=== PATIENT | male | born 1955 | race Caucasian/White ===

== ENCOUNTER 2020-11-07 10:01 | Outpatient (REF) | payer BC, SELFPAY ==
[2020-11-07 11:51] LABS: Alanine Aminotransferase 31 U/L (0-40); Anion Gap 14 (12-20); Aspartate Amino Transferase 28 U/L (5-37); Blood Urea Nitrogen 15 mg/dL (9-16); Calcium 9.2 mg/dL (8.4-10.2); Carbon Dioxide 28 mmol/L (22-29); Chloride 104 mmol/L (96-108); Cholesterol 213 mg/dL; Estimated Glomerular Filt Rate > 60; Glucose Fasting 101 mg/dL (60-99); HDL Cholesterol 77 mg/dL; LDL Cholesterol Calculated 125 mg/dl; Sodium 141 mmol/L (135-145); Triglycerides 58 mg/dL
[2020-11-07 12:01] LABS: PSA,Total (Free>4and<10) 0.93 ng/mL (0.00-4.00); Vitamin D 25-OH Total 62.9 ng/mL (>30)
== END 2020-11-07 10:02 | disposition home or self-care (01) ==
LOC: HO.HMGCLDS 10:01
PROVIDERS: PCP Internal Medicine; Visit Provider Internal Medicine
DX: Z00.01 Encounter for general adult medical examination with abnormal findings (principal); Z12.5 Encounter for screening for malignant neoplasm of prostate
CPT/HCPCS: 36415; 80048; 80061; 82306; 84153; 84450; 84460

== ENCOUNTER 2021-08-11 19:14 | Outpatient (REF) | payer BC, SELFPAY | END 2021-08-11 19:15 | disposition home or self-care (01) | LOC: HO.LNP 19:14 | PROVIDERS: Visit Provider Hospitalist | DX: Z20.822 Contact with and (suspected) exposure to COVID-19 (principal) | CPT/HCPCS: U0003; U0005 ==

== ENCOUNTER 2021-12-17 17:03 | Outpatient (REF) | payer BC, SELFPAY ==
--- NOTE | ~2021-12-17 | US_ITS ---
EXAMINATION: US SCROTUM CLINICAL INFORMATION: Scrotal pain. COMPARISON: Scrotal ultrasound dated 05/23/2019. TECHNIQUE: A sonogram of the scrotum was performed assessing grace-scale appearance and color Doppler flow. Spectral Doppler analysis of the arterial and venous flow were performed in the testes bilaterally. FINDINGS: RIGHT: Right testicle measures 3.3 x 2.0 x 2.8 cm, volume 9.3 mL. No focal testicular parenchymal lesions are visualized. Spectral Doppler analysis of the arterial and venous flow is normal in the right testis. Right epididymal head and tail with diffuse enlargement and heterogeneity with hypervascularity. A small anechoic cyst measures 0.4 cm. Trace right hydrocele. Prominent right venous plexus with increased vascularity. Right epididymal Doppler flow is normal. LEFT: Left testicle measures 3.8 x 2.2 x 2.2 cm, volume 9.4 mL. No focal testicular parenchymal lesions are visualized. Spectral Doppler analysis of the arterial and venous flow is normal in the left testis. Left epididymal diffuse mild enlargement and heterogeneity without hypervascularity. Anechoic cyst measuring 0.3 cm. Small left hydrocele. US/US scrotum doppler IMPRESSION: 1. No significant intratesticular abnormality. 2. Enlarged epididymides with heterogeneity bilaterally. The hypervascularity is seen on the right suggestive of acute epididymitis. 3. Trace right and small left hydroceles. 4. Right varicocele.
--- NOTE | ~2021-12-17 | US_ITS ---
EXAMINATION: US SCROTUM CLINICAL INFORMATION: Scrotal pain. COMPARISON: Scrotal ultrasound dated 05/23/2019. TECHNIQUE: A sonogram of the scrotum was performed assessing grace-scale appearance and color Doppler flow. Spectral Doppler analysis of the arterial and venous flow were performed in the testes bilaterally. FINDINGS: RIGHT: Right testicle measures 3.3 x 2.0 x 2.8 cm, volume 9.3 mL. No focal testicular parenchymal lesions are visualized. Spectral Doppler analysis of the arterial and venous flow is normal in the right testis. Right epididymal head and tail with diffuse enlargement and heterogeneity with hypervascularity. A small anechoic cyst measures 0.4 cm. Trace right hydrocele. Prominent right venous plexus with increased vascularity. Right epididymal Doppler flow is normal. LEFT: Left testicle measures 3.8 x 2.2 x 2.2 cm, volume 9.4 mL. No focal testicular parenchymal lesions are visualized. Spectral Doppler analysis of the arterial and venous flow is normal in the left testis. Left epididymal diffuse mild enlargement and heterogeneity without hypervascularity. Anechoic cyst measuring 0.3 cm. Small left hydrocele. US/US scrotum IMPRESSION: 1. No significant intratesticular abnormality. 2. Enlarged epididymides with heterogeneity bilaterally. The hypervascularity is seen on the right suggestive of acute epididymitis. 3. Trace right and small left hydroceles. 4. Right varicocele.
== END 2021-12-17 17:04 | disposition home or self-care (01) ==
LOC: HO.US 17:03
PROVIDERS: Visit Provider Internal Medicine
DX: N50.82 Scrotal pain (principal); N50.89 Other specified disorders of the male genital organs
CPT/HCPCS: 76870; 93975

== ENCOUNTER 2022-08-03 10:12 | Outpatient (REF) | payer BC, SELFPAY ==
[2022-08-03 11:28] LABS: MANUAL DIFF FLAG NO
[2022-08-03 11:34] LABS: Basophils Percent Auto 0.9 % (0-2); Eosinophils Absolute Auto 0.1 X10*3/uL (0.0-0.4); Hematocrit 44.5 % (42.0-52.0); Hemoglobin 14.8 g/dl (14.0-18.0); Imm Gran Abs Auto 0.01 X10*3/uL (0.00-0.03); Imm Gran Pct Auto 0.2 % (0.0-0.4); Lymphocytes Absolute Auto 1.6 X10*3/uL (1.2-4.9); Lymphocytes Percent Auto 34.9 % (20-40); Mean Corpuscular HGB Conc 33.3 g/dl (31.0-36.0); Mean Corpuscular Hemoglobin 30.6 pg (27.0-33.0); Mean Corpuscular Volume 91.9 fL (80.0-98.0); Mean Platelet Volume 11.8 fL (9.4-12.4); Monocytes Absolute Auto 0.4 X10*3/uL (0.1-1.2); Monocytes Percent Auto 8.3 % (2-11); Neutrophils Absolute Auto 2.5 x10*3/uL (2.0-8.3); Neutrophils Percent Auto 53.7 % (45-73); Platelet Count 211 X10*3/uL (160-400); Red Blood Count 4.84 X10*6/uL (4.60-5.80); Red Cell Distribution Width 12.5 % (11.0-16.0); White Blood Count 4.6 X10*3/uL (4.8-10.8)
== END 2022-08-03 10:13 | disposition home or self-care (01) ==
LOC: HO.HMGCLDS 10:12
PROVIDERS: PCP Internal Medicine; Visit Provider Internal Medicine
DX: R06.02 Shortness of breath (principal); R12 Heartburn
CPT/HCPCS: 36415; 84443; 85025

== ENCOUNTER 2022-08-19 14:40 | Outpatient (REF) | payer BC, SELFPAY ==
--- NOTE | 2022-08-19 17:42 | PFT_ITS ---
INDICATION: Asthma. SPIROMETRY: FEV1 to FVC of 79% with an FEV1 of 4.43 L, which is 139% predicted and an FVC of 5.58 L, which is 130% predicted. No significant response to bronchodilators noted. Maximum voluntary ventilation not completed. LUNG VOLUMES: Total lung capacity 120% predicted with residual volume 102% predicted. DIFFUSION CAPACITY: DLCO 105% predicted. Flow volume loop appears to be perfectly normal. INTERPRETATION: No obstructive nor restrictive ventilatory defects identified. No significant response to bronchodilators noted. Normal lung volumes and normal diffusion capacity. The flow volume loop appears to be consistent with normal lung mechanics. Normal pulmonary function studies. If asthma is in the differential, then a methacholine challenge may be helpful for assessing for hyper-reactive airways. Otherwise, clinical correlation warranted. MD LUIS Meza/MODL / [id number]
== END 2022-08-19 14:41 | disposition home or self-care (01) ==
LOC: HO.RESP 14:40
PROVIDERS: PCP Internal Medicine; Visit Provider Internal Medicine
DX: R06.02 Shortness of breath (principal)
CPT/HCPCS: 94060; 94727; 94729

== ENCOUNTER 2022-09-03 09:02 | Outpatient (REF) | payer BC, SELFPAY ==
--- NOTE | ~2022-09-03 | FL_ITS ---
EXAMINATION: XR GI SERIES CLINICAL INFORMATION: Heartburn, reflux, nausea and epigastric pain COMPARISON: None TECHNIQUE: Routine upper GI air-contrast study was performed in upright and lying position FINDINGS: Following oral administration of thick barium and effervescent granules there is normal propagation bolus from the oral cavity through the pharynx, esophagus into stomach without any evidence of obstruction, narrowing or stricture. On placing patient supine and prone lying the course, caliber and peristalsis of the stomach and the duodenum bulb is normal. There are small gastric erosions seen in the body of the stomach and flocculation in the antrum likely secondary to gastric hyperacidity. The duodenal bulb and the sweep is normal. The mucosal pattern of the duodenum is normal. FLUOROSCOPY TIME: 2.4 minutes DOSE AREA PRODUCT: 45.174 uGy-m2 (microgray-meter squared) FL/FL upper GI series IMPRESSION: Small gastric erosions but no duodenal ulceration. Suspect hyperacidity.
== END 2022-09-03 09:03 | disposition home or self-care (01) ==
LOC: HO.XRAY 09:02
PROVIDERS: PCP Internal Medicine; Visit Provider Internal Medicine
DX: R10.13 Epigastric pain (principal)
CPT/HCPCS: 74240

== ENCOUNTER 2022-10-01 07:01 | Outpatient (REF) | payer BC, MEDICARE, SELFPAY ==
[2022-10-01 12:25] LABS: Cholesterol 213 mg/dL; Glucose Fasting 109 mg/dL (60-99); HDL Cholesterol 82 mg/dL; LDL Cholesterol Calculated 123 mg/dl; Triglycerides 43 mg/dL
[2022-10-01 12:50] LABS: PSA,Total (Free>4and<10) 0.95 ng/mL (0.00-4.00); Vitamin D 25-OH Total 32.3 ng/mL (>30)
== END 2022-10-01 07:02 | disposition home or self-care (01) ==
LOC: HO.HMGCLDS 07:01
PROVIDERS: PCP Internal Medicine; Visit Provider Internal Medicine
DX: Z00.01 Encounter for general adult medical examination with abnormal findings (principal); Z12.5 Encounter for screening for malignant neoplasm of prostate; R73.01 Impaired fasting glucose; E78.00 Pure hypercholesterolemia, unspecified; E66.3 Overweight; Z86.39 Personal history of other endocrine, nutritional and metabolic disease
CPT/HCPCS: 36415; 80061; 82306; 82947; 84153

== ENCOUNTER 2023-02-21 10:05 | Outpatient (AMB) | payer BC, SELFPAY ==
--- NOTE | 2023-02-21 10:36 | MHC.OFFWIV ---
Intake Vital Signs 02/21/23 10:45 Height 5 ft 8 in BP 128/64 Blood Pressure Location Rt brachial Position Sitting Pulse 65 Pulse Source Pulse Oximeter Temp 97.5 F Temp Source Temporal Artery Scan Pulse Oximetry (%) 98 Oxygen Delivery Method Room Air Intake Visit Reasons: EP, Dizziness Patient Tobacco Use Status: Never used Tobacco Allergies No Known Allergies [No Known Allergies*] Allergy (Verified 02/21/23 10:44) Do you need a note to return to daycare/school/sports/work: No HPI EP, Dizziness HPI Details Patient presents with 4-5 days of generalized weakness, fatigue and dizziness and ?just feeling off kilter ?. He notes doing a significant amount of yd work and [place] preparation in the extreme heat. He did drink lot water and Gatorade to try to combat dehydration. But he feels like he cannot recover from it. He denies chest pain or shortness of breath beyond baseline. He denies injury or use of blood thinners or blow to head. He notes normal appetite no indigestion, normal urination without symptoms. No congestion ear pain or nasal symptoms. Denies fever headache or rashes. No joint pain beyond his normal arthritic pain. 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 Brother No problems noted. Sister No problems noted. Daughter No problems noted. Social History Housing: House Alcohol intake: current Patient Tobacco Use Status: Never used Tobacco e-Cigarette/Vaping Use: Never Used service: No Current occupational status: employed Cognitive needs: No Hearing needs: No Vision needs: No Review of Systems Const Reports as per HPI and Reports no additional complaints Eyes Reports no additional complaints ENT Reports no additional complaints and Reports as per HPI Card Reports as per HPI and Reports no additional complaints Resp Reports as per HPI and Reports no additional complaints GI Reports as per HPI and Reports no additional complaints Reports no additional complaints and Reports as per HPI Musc Reports no additional complaints and Reports as per HPI Skin/Breast Denies lesions Neuro Reports no additional complaints, Reports as per HPI and Denies Abnormal speech present Physical Exam Vital Signs: Last Vital Signs Temp 97.5 F 02/21/23 10:45 Pulse 65 02/21/23 10:45 BP 128/64 02/21/23 10:45 Pulse Ox 98 02/21/23 10:45 Oxygen Delivery Method Room Air 02/21/23 10:45 Const General: cooperative, comfortable, no acute distress, alert and awake Nutritional Appearance: average body habitus Orientation/consciousness: patient oriented x3 Limitations: no limitations HEENT Head: Yes normal to inspection Ears: external ears normal and TM's normal bilaterally General nose exam: Normal external nose present and Normal nares present Face and sinus: Yes normal facial exam and Yes sinuses nontender Mouth: Normal oral and palatal mucosa present Throat: Yes posterior oropharynx normal Eyes General: appearance normal, both eyes and all related structures Visual Farfan: normal visual farfan by confrontation Alignment and Position: alignment normal Pupils: Equal, round and reactive pupils present EOM: EOMs intact bilaterally Resp Effort & Inspection: normal respiratory effort Auscultation: clear to auscultation bilaterally Cardio Rate: regular rate Rhythm: regular rhythm Heart sounds: S1 normal heart sound present and S2 normal heart sound present GI Palpation (GI): Soft to palpation, nontender, no guarding and not rigid Auscultation: normal bowel sounds Neuro General: patient oriented x3, gait normal and CN's II-XI intact bilaterally Cranial nerves: Yes Equal, round and reactive pupils present Cognition (Neuro): normal cognition Speech: No Abnormal speech present Gait exam (Neuro): Normal gait present Motor exam (neuro): 5/5 motor strength present throughout Extrem General: Yes no pedal edema and No calf tenderness Results AMB Urinalysis, Automated UA Leukoctes 0 Elis/uL Last Edit by Amsita Jimenez, CHIQUI on 02/21/23 10:49 UA Nitrite Negative Last Edit by Asmita Jimenez, CHIQUI on 02/21/23 10:49 UA Urobilinogen 0.2 mg/dL Last Edit by Asmita Jimenez, CHIQUI on 02/21/23 10:49 UA Protein 0 mg/dL Last Edit by Asmita Jimenez, PULMONARY CARE NURSE on 02/21/23 10:49 UA pH 8.0 Last Edit by Asmita Jimenez, PULMONARY CARE NURSE on 02/21/23 10:49 UA Blood 0 Kelvin/uL Last Edit by Asmita Jimenez, PULMONARY CARE NURSE on 02/21/23 10:49 UA Specific [place] 1.005 Last Edit by Asmita Jimenez, CHIQUI on 02/21/23 10:49 UA Ketone Negative Last Edit by Asmita Jimenez, CHIQUI on 02/21/23 10:49 UA Bilirubin 0 mg/dL Last Edit by Asmita Jimenez, CHIQUI on 02/21/23 10:49 UA Glucose 0 mg/dL Last Edit by Asmita Jimenez, CHIQUI on 02/21/23 10:49 AMB Random Glucose (hemocue) AMB Random Glucose (hemocue) 91 mg/dL Last Edit by CAROLINE Myers on 02/21/23 11:17 Results Reviewed Results Reviewed: Laboratory Last Values Urine pH (Auto) 8.0 02/21/23 10:48 Specific [place] (Auto) 1.005 02/21/23 10:48 Urine Protein (Auto) 0 mg/dL 02/21/23 10:48 Glucose (UA)(Auto) 0 mg/dL 02/21/23 10:48 Urine Ketones (Auto) Negative 02/21/23 10:48 Urine Blood (Auto) 0 Kelvin/uL 02/21/23 10:48 Urine Nitrite (Auto) Negative 02/21/23 10:48 Urine Bilirubin (Auto) 0 mg/dL 02/21/23 10:48 Urine Urobilinogen (Auto) 0.2 mg/dL 02/21/23 10:48 Leukocyte Esterase (Auto) 0 Elis/uL 02/21/23 10:48 EKG reviewed by nh incomplete right bundle branch block however this is no change from 2021 EKG. No ischemic changes Assessment & Plan Assessment & Plan (1) Dizziness: Code(s): R42 - Dizziness and giddiness (2) Weakness: Code(s): R53.1 - Weakness Plan Will rule out electrolyte abnormality as well as Lyme given him working outside in the heat for several hours at a time when symptoms began.. Will call patient with results today did warn him that if symptoms do not resolve or if electrolytes are abnormal he may need to go to ED. will call patient when results are available. Cranial causes cannot be ruled out however no blood thinners and no trauma to the head. Advised patient if symptoms do not resolve in 24 hours or worsen in any way, to include vision changes headache worsening dizziness weakness change in mental status he should be seen in emergency department immediately, to not drive go by ambulance. Orders: Orders Complete Blood Count Auto Diff Today R42 - Dizziness and giddiness, R53.1 - Weakness, R73.01 - Impaired fasting glucose TRE Lee Creatine Kinase Total Today R42 - Dizziness and giddiness, R53.1 - Weakness, R73.01 - Impaired fasting glucose TRE Lee Comprehensive Met. Panel Today R42 - Dizziness and giddiness, R53.1 - Weakness, R73.01 - Impaired fasting glucose TRE Lee Lyme IgG/IgM w/reflex to WB Today R42 - Dizziness and giddiness, R53.1 - Weakness TRE Lee AMB Urinalysis Automated Today Z13.9 - Encounter for screening, unspecified Shaka Hart MD AMB Random Glucose (hemocue) Today R73.01 - Impaired fasting glucose TRE Lee Coding Level of Care Code Est Pt Level 4 (97253) Diagnoses Dizziness R42 Weakness R53.1
[2023-02-21 10:45] VITALS: BP 128/64; PULSE 65; TEMP 36.4; O2SAT 98
== END 2023-02-21 11:21 | disposition home or self-care (01) ==
PROVIDERS: PCP Internal Medicine; Visit Provider Physician Assistant
DX: R42 Dizziness and giddiness (principal); R53.1 Weakness; Z13.9 Encounter for screening, unspecified; R73.01 Impaired fasting glucose
CPT/HCPCS: 81003; 82948; 99214

== ENCOUNTER 2023-02-21 11:23 | Outpatient (REF) | payer BC, SELFPAY ==
[2023-02-23 21:44] LABS: Lyme Abs Screen <0.90 index
== END 2023-02-21 11:24 | disposition home or self-care (01) ==
LOC: HO.HMGCLDS 11:23
PROVIDERS: PCP Internal Medicine; Visit Provider Physician Assistant
DX: R42 Dizziness and giddiness (principal); R53.1 Weakness; R73.01 Impaired fasting glucose
CPT/HCPCS: 36415; 80053; 82550; 85025; 86617; 86618

== ENCOUNTER 2023-02-26 11:51 | Outpatient (REF) | payer BC, SELFPAY ==
[2023-02-26 13:39] LABS: Anion Gap 11 (12-20); Blood Urea Nitrogen 15 mg/dL (9-16); Calcium 9.6 mg/dL (8.4-10.2); Carbon Dioxide 26 mmol/L (22-29); Chloride 105 mmol/L (96-108); Estimated Glomerular Filt Rate > 60; Glucose Random 94 mg/dL (60-115); Potassium 4.1 mmol/L (3.3-5.1); Sodium 138 mmol/L (135-145)
== END 2023-02-26 11:52 | disposition home or self-care (01) ==
LOC: HO.HMGCLDS 11:51
PROVIDERS: PCP Internal Medicine; Visit Provider Physician Assistant
DX: R74.8 Abnormal levels of other serum enzymes (principal)
CPT/HCPCS: 36415; 80048; 82550

== ENCOUNTER 2024-07-09 08:52 | Outpatient (AMB) | payer BC, SELFPAY ==
--- NOTE | 2024-07-09 08:54 | MHC.OFFWIV ---
Intake Vital Signs 07/09/24 08:55 Height 5 ft 8 in Weight 178 lb 4 oz BMI 27.1 BP 120/72 Blood Pressure Location Rt brachial Position Sitting Pulse 86 Pulse Source Pulse Oximeter Pulse Oximetry (%) 99 Oxygen Delivery Method Room Air Intake Visit Reasons: EP dizzy/loss of balance Intake Note: Patient here for loss of balance/dizzy when getting out of bed that started about 1 week ago. pt states this has happened in the past. Patient Tobacco Use Status: Never used Tobacco Allergies No Known Allergies [No Known Allergies*] Allergy (Verified 07/09/24 08:56) Do you need a note to return to daycare/school/sports/work: No HPI HPI Comments History of Present Illness Details This is a 68-year-old male with a past medical history of polio which caused muscle wasting and weakness in his right leg only, presenting for evaluation of lightheadedness and dizziness that occurs only upon waking. Patient states that when he gets out of bed for the past 7-10 days he feels somewhat lightheaded. Patient denies any injury, trauma or falls to the ground as result of this symptom. He denies having any hearing loss, visual changes, chest pain, shortness breath, nausea, vomiting or increased weakness in his lower extremities. 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, right lower leg History of vitamin D deficiency Impaired fasting glucose Hypercholesterolemia Overweight (BMI 25.0-29.9) Shortness of breath at rest Epigastric pain Scrotal mass Acute pain in scrotum Bilateral finger arthralgia Osteoarthritis History of trigger finger Hx of orchitis Tinnitus Sequelae of poliomyelitis Surgical History S/P trigger finger release History of surgical removal of meniscus of knee H/O eye surgery History of shoulder surgery History of foot surgery Family History Father Lung cancer Mother Breast cancer Maternal Grandfather History of heart attack Maternal Grandmother History of heart attack Paternal Uncle DVT (deep venous thrombosis) Factor V Leiden mutation Brother No problems noted. Brother No problems noted. Sister No problems noted. Daughter No problems noted. Social History Housing: House Alcohol intake: current Patient Tobacco Use Status: Never used Tobacco e-Cigarette/Vaping Use: Never Used service: No Current occupational status: employed Cognitive needs: No Hearing needs: No Vision needs: No Review of Systems Const All systems reviewed & are unremarkable except as noted in HPI and below Reports no additional complaints, Denies frequent falls, Denies headache(s), Denies weakness and Reports other (lightheadedness upon standing from bed in the morning.) Eyes Reports no additional complaints, Denies change in vision, Denies loss of vision and Denies seeing flashes ENT Reports no additional complaints, Reports dizziness (only upon waking in the morning), Denies headache(s) and Reports disequilibrium Card Reports no additional complaints and Denies syncope Resp Reports no additional complaints GI Reports no additional complaints Reports no additional complaints Musc Reports no additional complaints and Reports other (chronic right leg weakness) Skin/Breast Reports system reviewed and no additional complaints, except as documented Neuro Reports no additional complaints, Reports dizziness (only upon waking in the morning), Denies syncope, Denies frequent falls, Denies headache(s), Denies loss of vision, Denies paresthesias, Reports disequilibrium and Denies weakness Psych Reports no additional complaints Aller/Immun Reports no additional complaints Physical Exam Vital Signs: Last Vital Signs Pulse 86 07/09/24 08:55 BP 120/72 07/09/24 08:55 Pulse Ox 99 07/09/24 08:55 Oxygen Delivery Method Room Air 07/09/24 08:55 BMI result Body Mass Index 27.1 Patient is *not* orthostatic: BP 158/90 sitting, 152/92 standing. Const General: cooperative, healthy appearing, comfortable, no acute distress, well developed, alert, awake and Physically active Nutritional Appearance: average body habitus Orientation/consciousness: patient oriented x3 Limitations: no limitations HEENT Head: Yes normal to inspection Ears: hearing grossly normal bilaterally, external ears normal, TM's normal bilaterally and EAC's normal General nose exam: Normal external nose present Face and sinus: Yes normal facial exam Throat: Yes posterior oropharynx normal Eyes General: appearance normal, both eyes and all related structures Visual Farfan: normal visual farfan by confrontation Alignment and Position: alignment normal Periorbital: periorbital findings normal Eyelids: Yes eyelids normal Conjunctivae: conjunctivae normal Sclerae: sclerae normal Corneas: corneas normal Pupils: Equal, round and reactive pupils present and Pupils normal by confrontation EOM: EOMs intact bilaterally Direct Ophthalmoscopy: normal light reflex and no photophobia Cardio Rate: regular rate Rhythm: regular rhythm Neuro General: patient oriented x3 Cranial nerves: Yes Equal, round and reactive pupils present Extrem Other: RLE visibly smaller than LLE Psych Appearance: grossly normal Mental Status: mental status grossly normal Insight: Good insight present (Psych) Judgement: Good judgement present (Psych) Assessment & Plan Assessment & Plan (1) Lightheadedness: Comment: Discussed vision, hearing, balance, ambulation with patient; no recent or notable changes to the above, no syncope, no persisting symptoms. Code(s): R42 - Dizziness and giddiness Plan: Patient will follow up with his primary care provider regarding any laboratories that may be requested prior to his physical examination in September 03, 2024. Patient will attempt to get up more gradually in the morning, place feet on the ground prior to standing and follow-up with Dr. Ordonez as an outpatient. Patient is in agreement with this plan of care. Coding Level of Care Code Est Pt Level 3 (06216) Diagnoses Lightheadedness R42 Time Spent (min) 20
[2024-07-09 08:55] VITALS: BP 120/72; PULSE 86; O2SAT 99; BMI 27.1
== END 2024-07-09 09:21 | disposition home or self-care (01) ==
PROVIDERS: PCP Internal Medicine; Visit Provider Physician Assistant
DX: R42 Dizziness and giddiness (principal)

== ENCOUNTER 2024-07-24 09:01 | Outpatient (REF) | payer BC, SELFPAY ==
[2024-07-24 10:25] LABS: MANUAL DIFF FLAG NO
[2024-07-24 10:30] LABS: Basophils Absolute Auto 0.1 X10*3/uL (0.0-0.2); Basophils Percent Auto 1.3 % (0-2); Eosinophils Absolute Auto 0.2 X10*3/uL (0.0-0.4); Eosinophils Percent Auto 3.9 % (0-4); Hematocrit 41.7 % (42.0-52.0); Hemoglobin 14.3 g/dl (14.0-18.0); Imm Gran Abs Auto 0.01 X10*3/uL (0.00-0.03); Imm Gran Pct Auto 0.3 % (0.0-0.4); Lymphocytes Absolute Auto 1.5 X10*3/uL (1.2-4.9); Lymphocytes Percent Auto 38.8 % (20-40); Mean Corpuscular HGB Conc 34.3 g/dl (31.0-36.0); Mean Corpuscular Hemoglobin 32.3 pg (27.0-33.0); Mean Corpuscular Volume 94.1 fL (80.0-98.0); Monocytes Absolute Auto 0.3 X10*3/uL (0.1-1.2); Monocytes Percent Auto 8.3 % (2-11); Neutrophils Absolute Auto 1.8 x10*3/uL (2.0-8.3); Neutrophils Percent Auto 47.4 % (45-73); Platelet Count 194 X10*3/uL (160-400); Red Blood Count 4.43 X10*6/uL (4.60-5.80); Red Cell Distribution Width 12.9 % (11.0-16.0); White Blood Count 3.8 X10*3/uL (4.8-10.8)
[2024-07-24 11:01] LABS: Alanine Aminotransferase 39 U/L (0-40); Anion Gap 13 (12-20); Aspartate Amino Transferase 30 U/L (5-37); Blood Urea Nitrogen 11 mg/dL (9-16); Calcium 8.9 mg/dL (8.4-10.2); Carbon Dioxide 27 mmol/L (22-29); Chloride 105 mmol/L (96-108); Cholesterol 212 mg/dL (<200); Estimated Glomerular Filt Rate > 60; Glucose Fasting 122 mg/dL (60-99); HDL Cholesterol 77 mg/dL (>40); LDL Cholesterol Calculated 125 mg/dL (<100); Potassium 4.7 mmol/L (3.3-5.1); Sodium 140 mmol/L (135-145); Triglycerides 54 mg/dL (<150)
[2024-07-24 11:04] LABS: Vitamin D 25-OH Total 70.7 ng/mL (>30)
[2024-07-24 12:03] LABS: PSA,Total (Free>4and<10) 1.09 ng/mL (0.00-4.00)
--- OUTSIDE RECORDS SUMMARY | 2024-07-25 19:13 | XMS_ITS ---
Author Organization [facility] Address [address] [place] [address] Care Team Providers Care Law Firm Consultant Name Role Phone José Luis DONIS, Pavithra Dewey Primary Care Provider Un available Remington Waldron Unavailable [phone] Allergies Allergen (clinical drug ingredient) Drug/Non Drug Allergy documented on EMR Reaction Allergy Type Onset Date Status morphine Morphine vomiting Drug Allergy Active REASON FOR VISIT Last PCP visit 2022, Painful toe(s), Painful nail(s) aggrevated by shoes and causing difficulty standing/walking. Medications Medication SIG (Take, Route, Fr equency, Duration) Notes Start Date End Date Status Lamisil 250 250 MG 1 tab Oral Daily for 90 Not-Taking Naproxen 500 MG 1 tablet as needed O rally every 12 hrs for 30 days 07/18/2015 Not-Willie ing Physical Therapy . . . 2-3x/week for 3-4 weeks 12/2014 Not-Taking Lamisil 250 250 MG 1 tab Oral Daily for 90 015 Not-Taking Social History Tobacco use other than smoking: Question Answer Notes Are you an other tobacco user? No Problems Problem Type SNOMED Code ICD Code Onset Dates Problem Status W/U Status Risk Notes Problem Acquired hammer toe of right foot (1384834251381 105) Other hammer toe(s) (acquired), right foot (M20.41) Active confirmed Vital Signs Height 5ft 8in in 03/13/2024 Weight 175 lbs 03/13/2024 BMI 26.61 kg/m2 03/13/2024 Encounters Encounter Location Date Provider Diagnosis [facility] [address] [place] [address] 03/13/2024 Remington Waldron Tinea unguium B35.1 ; Pain in right toe(s) M79.674 ; Pain in left toe(s) M79.675 and Other hammer toe(s) (acquired), right foot M20.41 Assessments Encounter Date Diagnosis (ICD Code) Assessment Notes Treatment Notes Treatment Clinical Notes Section Notes 03/13/2024 Tinea unguium (ICD-10 - B35.1) 03/13/2024 Pain in right toe(s) (ICD-10 - M79.674) 03/13/2024 Pain in left toe(s) (ICD-10 - M79.675) 03/13/2024 Other hammer toe(s) (acquired), right foot (ICD-10 - M20.41) Plan Of Treatment Pending Test Test Name Order Date X ray : Foot, right 3V 03/13/2024 Next Appt Details Follow Up: prn, Reason: Procedure Notes * Category Sub-Category Detail Notes Debride Nail 6-10 Nail debridement Nail debridem ent performed extensively to reduce/remove overall nail length and girth, subungual debris, and necrotic tissue, by manual and electrical means with use of a nail nipper and/or dremel, to more viable healthy nail plate or bed tissue 6-10. Silver nitrate used for any petechial bleeding as necessary. Patient chooses, no pharmaceutical tx (43610) Progress Notes * Poncho ESQUIVEL PDOB:[birth year] (68 yo M)Acc No.[id number]:03/13/2024 Progress Notes Patient:?Poncho Esquivel Samaria Provider:?Remington Waldron DPM :1955???Age:68 Y???Sex:Male Luis e:03/13/2024 Address:[address] [place] [address] Pcp:Raymundo Hernandez Subjective: * Chief Complaints: * ???Last PCP visit ainfu l toe(s) Painful nail(s) aggrevated by shoes and causing difficulty standing/walking. * HPI: ???Toe pain:?Nature:?tenderness, aching.?Location:?5th toe, Right foot.?Duration:?several months.?Onset/Cause:?gradual.?Course:?worse.?Aggravated by:?shoes, any pressure, standing/walking.?Treatments:?bracing/splinting/padding.?Severity/Quality:?moderate.?Skin problems:?Nature:?discolored.?Location:?B/L .?Treatments:?hx of multiple operations right foot due to polio .?Painful Nails:?Pt States Last PCP Visit:?Date:?11/12/2023 * ROS:?General/Constitutional:?Nausea?denies, denies.?Vomiting?denies, denies.?Hunger Thirst?denies, denies.?Loss appetite?denies, denies.?Chills?denies, denies.?Fatigue?denies, denies.?Fever?denies, denies.?Night Sweats denies, denies.?Unexplained weight loss?denies, denies.?Unexplained weight gain?denies.?Ophthalmologic:?Blurred vision?denies.?Red eye?denies.?HEENTM:?Dentures?denies, denies.?Dizziness?denies, denies.?Glasses/contacts?denies, denies.?Retinopathy?denies, denies.?Blurred/double vision?denies, denies.?TMJ?denies, denies.?Discharge/drainage?denies, denies.?Implants?denies, denies.?Sore throat?denies.?Dental implants?denies.?Hard of hearing ?denies, denies.?Difficulty chewing/swallowing/speaking?denies, denies.?Nose bleeds?denies, denies.?Sore mouth?denies, denies.?Swollen glands?denies.?Respiratory:?On Oxygen?denies, denies.?Pneumonia/pleurisy?denies, denies.?Bronchitis?denies, denies.?Emphysema?denies, denies.?Coughing?denies, denies.?Cough blood?denies, denies.?Shortness of breath?denies, denies.?Wheezing?denies, denies.?Cardiovascular:?Pacemaker?denies, denies.?MVP?denies, denies.?WPW?denies, denies.?CHF?denies, denies.?Heart attack?denies, denies.?Septal defect?denies, denies.?Rapid beat?denies, denies.?Chest pain ?denies, denies.?Atrial Fib.?denies, denies.?Murmur/Palpitations?denies, denies.?Gastrointestinal:?Hemorrhoids?denies, denies.?Stomach/Abdominal pain?denies, denies.?Dark blood stool?denies, denies.?Irritable bowel ?denies, denies.?Constipation?denies, denies.?Diarrhea?denies, denies.?Vomiting?denies.?Hematology:?Swelling?denies, denies.?Clots?denies.?Varicose Veins?denies.?Bruising?denies, denies.?Bleeding problem?denies, denies.?Genitourinary:?Blood urine?denies, denies.?Frequent/Painfu/urination/bladder control?denies, denies.?Kidney stones?denies, denies.?Infection (UTI)?denies, denies.?Nephropathy?denies, denies.?sex trans dis (STD)?denies.?Prostate?denies.?Musculoskeletal:?Hammertoes?denies, denies.?Bunions?denies, denies.?Scoliosis/kyphosis?denies.?Back Pain?denies.?Muscle Cramps/ Resting?denies.?Muscle cramps / walking?denies, denies.?Generalized aches and pains?denies, denies.?Weakness?denies, denies.?Integ.:?Gomez?denies, denies.?Scars?admits, denies.?Corns/calluses?admits, denies.?Ingrown nails?denies, denies.?Painful nails?denies, denies.?Open Sores?denies.?Rashes?denies, denies.?Neurologic:?Difficulty sleeping?denies, denies.?Bipolar?denies.?Brain disorder?denies, denies.?Numbness?denies.?Balance trouble?denies, denies.?Confusion?denies, denies.?Fainting/blackouts?denies, denies.?Headache?denies.?Tingling?denies.?Tremors?denies, denies.? * Medical History:? * Surgical History:?leg and fo ot surgery, 15 ortho surgeries shoulder surgery * Hospitalization/Major Diagno stic Procedure:?No Hospitalization History. * Family History:?Mother: candis beck, mom has foot problems, diagnosed with Family history of arthritis, Unspecified essential hypertension, Other malignant neoplasm of unspecified site.?Father: , diagnosed with Other malignant neoplasm of unspecified site.? * Social History:?Tobacco Use:?Tobacco Use/Smoking?Are you a:: nonsmoker , Additional Findings: Tobacco Non-User: Current non-smoker.?Tobacco use other than smoking?Are you an other tobacco user??No ???Drugs/Alcohol:?Drugs?Have you used drugs other than those for medical reasons in the past 12 months??No ?Alcohol Screen?Did you have a drink containing alcohol in the past year?: Yes, How often did you have a drink containing alcohol in the past year?: 4 or more times a week (4 points), Points: 4, Interpretation: Positive.?Miscellaneous:?Caffeine: yes, frequency:, 3-5 cups per day. ?Children: yes. ?Exercise: yes, walking, gardening/yard work, weights. ?Marital status: . 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 * Medications:?Not-Taking/PRNN aproxen 500 MG Tablet 1 tablet as needed Orally every 12 hrsPhysical Therapy . . . . 2-3x/weekLamisil 250 250 MG Tablet 1 tab Oral DailyLamisil 250 250 MG Tablet 1 tab Oral DailyMedication List reviewed and reconciled with the patientNot-Taking/PRN Naproxen 500 MG Tablet 1 tablet as needed Orally every 12 hrsNot-Taking/PRN Physical Therapy . . . . 2-3x/weekNot-Taking/PRN Lamisil 250 250 MG Tablet 1 tab Oral DailyNot-Taking/PRN Lamisil 250 250 MG Tablet 1 tab Oral DailyMedication List reviewed and reconciled with the patient * Allergies:?Morphine: vomitin myrna[Allergies Verified] Objective: * Vitals:?Ht: 5ft 8in, Wt:175, BMI:26.61, Shoe size: 8, Ht-cm: 172.72 cm, Wt-k.38 kg. * Examination: ???General Examination: ?GENERAL APPEARANCE:?pleasant, alert, well nourished, well developed, well hydrated, with good attention to hygene/body habitus, and in no acute distress.?ORIENTED:?person,place, and time.?Neurological: ?SENSORY:?Neurological exam reveals intact sensorium, pain sensation normal, vibration sensation intact, pinprick sensation is normal in the lower extremities, Pt denies, anesthesia, burning, paresthesia, tingling, B/L.?BABINSKI REFLEX:?absent.?Vascular: ?DP PULSES:?2/4, B/L.?PT PULSES:?2/4, B/L.?CAPILLARY FILL TIME:?3 secs. per digit, B/L.?SKIN TEMPERTURE GRADIENT OF THE LOWER EXTERMITIES:?warm to cool, proximal to distal, B/L.?HAIR GROWTH/TEXTURE/ELASTICITY/TURGOR:?normal, B/L.?PIGMENTATION:?normal, B/L.?EDEMA:?no edema, B/L.?TELANGECTASIA:?absent.?VARICOSITIES:?absent.?Dermatologic: ?SKIN FINDINGS:?Skin exam reveals normal texture, elasticity, and tugor. There are no masses. The interspaces are clear.?Orthopedic: ?MUSCLE STRENGTH:?5/5 all groups in a symmetrical fashion , B/L.?GAIT ABNORMALITY:?pronated, abducted, B/L.?DIGITAL DEFORMITIES:? Digital contracture t9 underlapping t8.?X-Rays - IMAGING REPORT: ?Clinical Indication(s):? Evaluate Biomechanical Deformity.?Views:? 3 views of Foot, RIGHT.?Findings:? moderate generalized decrease in bone density.?Digits:? show exostosis of bone at distal phalanx in area of pain, 5th digit.?HAV:? Post-op XR shows that there is good clean bone resection without any evidence of sharp edges or bony spicules, there is rectus alignment of the osteotomized capital fragment with respect to the sesamoids, internal fixation appears intact and stable.?Nails: ?NAILS are:?elongated,overgrown,dystrophic,greater than 3mm thick,discolored and friable with crumbly malodorous subungual debris, with pain on palpation, 1-5 Left foot, T5, T7, T9.? Assessment: * Assessment: 1.?Pain in right toe(s) - M7 9.674?2.?Tinea unguium - B35.1 (Primary)?3.?Pain in left toe(s) - M79.675?4.?Other hammer toe(s) (acquired), right foot - M20.41? Plan: * Treatment: * Procedures:?Debride Nail 6-10:?Nail debridement?Nail debridement performed extensively to reduce/remove overall nail length and girth, subungual debris, and necrotic tissue, by manual and electrical means with use of a nail nipper and/or dremel, to more viable healthy nail plate or bed tissue 6-10. Silver nitrate used for any petechial bleeding as necessary. Patient chooses, no pharmaceutical tx (39733).? * Procedure Codes:?62755 DEBRI DE NAIL, 6 OR MORE, Modifiers: XS 80239 X-RAY EXAM OF RIGHT FOOT 3V, Modifiers: 26 , RT * Preventive Medicine:? ??Counseling:?Discussion:?-03: Office or other outpatient visit for the evaluation and management of a new patient, which required a medically appropriate history and/or examination and LOW level of DECISION MAKING for: 1 STABLE ACUTE UNCOMPLICATED PROBLEM, 2 OR MORE MINOR PROBLEMS, OR 1 STABLE CHRONIC PROBLEM, THAT POSE(S) A LOW RISK FOR MORBIDITY/MORTALITY. The visit on the day of the encounter encompassed interpreting the data and educating the patient as to the nature of their condition, treatment options available according to their individual PMH, meds, allergies, and overall health/living conditions, as well as any potential risks or complications that may occur from a failure to adhere to, and participate in, the recommended course of therapy. The discussion included a complete verbal, and/or written explanation of the examination results, any x-rays taken, the proposed diagnosis, and outline of the treatment plan. A schedule for future care needs was also explained. The patient verbalized an understanding of the instructions at this time and agreed to be an active participant in their treatment. If the patient should think of any questions or concerns after the visit, I have encouraged the patient to call the office.?Digital Treatment:?HT- I explained to the patient the possible etiologies of Hammertoes, including genetics/foot type/shoegear/activity level/exercise routine and the risks/benefits of all the different treatment options for their pain including: No treatment at all, Rest, Ice, New/supportive/wider/deeper Shoegear, Digital Padding/Strapping/Taping/Bracing/Gel protective sleeves, Foot/Ankle AFO Bracing, Stretching exercises, Deep Tissue Massage, Arch support/shoe inserts with splay metatarsal padding, and Custom orthoses. I insisted that any digital devices be removed daily and not worn overnight for safety. The patient is to carefully examine the toes daily for any skin irritation while using any splinting or padding device. The advantages and disadvantages of each option were discussed and the patients questions re: shoegear, padding, custom vs prefabricated inserts, activity level, and consistency in home treatment regimens for optimal success were answered to their verbally confirmed satisfaction.?Fungal Nail Counseling:?The patient was counseled on the diagnosis, potential etiologies (including, but not limited to, environmental factors, genetic, immune deficiency), and the multiple treatment options for Onychomycosis. We discussed the risks and benefits of each option from performing no treatment, to ultraviolet light shoe treatment, to laser nail treatment, to applying topical antifungals, to taking oral antifungal medication, to surgical removal of the involved nail(s) with or without performing a matricectomy, or any combination thereof. We discussed the advantages and disadvantages of each of possible treatment and importance for adherence to all the recommended therapies for optimum success. This includes the necessity for weekly emery board self nail home debridements, and control the nail and skin environment as much as possible by only using a fresh, dry pair of shoes/socks each day, as well as keeping the skin as dry as possible through the use of sprays/powders if necessary. The patient was instructed to discard the emery board after use to prevent reinfection of the involved nail(s). We discussed the mycological and visual clinical effectiveness of topical vs oral antifungal treatments as well as each ones potential side effects and/or any patient- specific medication interactions. We discussed the reasons behind the important requirement of regular liver function testing with oral antifungal therapy for safety. Patient questions regarding use, dosage, successful outcomes, blood tests, and possible pharmaceutical interactions were reviewed and the patient verbalized that all answers were clearly understood, The Pt prefers topical treatment--vicks qd hs.? * Follow Up:?prn * Images: * Sign off status: Completed true * Provider:?Remington Waldron DPM Date:? 024 Generated for Rui noland/Yanique/eTransmitting on:?07/25/2024 07:13 PM EST History and Physical Notes * HPI (History of Present Illness) Category Sub-Category Detail Notes Category Not es Toe pain Nature: tenderness, aching Location: 5th toe, Right foot Duration: several months Onset/Cause: gradual Course: worse Aggravated by: shoes, any pressure, standing/walking Treatments: bracing/splinting/pa dding Severity/Quality: moderate Painful Nails Pt States Last PCP Visit: Date:: 11/12/2023 Skin problems Nature: discolored Location: B/L Treatments: hx of multiple opera tions right foot due to polio Examination Category Sub-Category Detail Notes Category Not es Neurological SENSORY: Neurological exa m reveals intact sensorium, pain sensation normal, vibration sensation intact, pinprick sensation is normal in the lower extremities, Pt denies, anesthesia, burning, paresthesia, tingling, B/L BABINSKI REFLEX: absent Dermatologic SKIN FINDINGS: Skin exam reveal s normal texture, elasticity, and tugor. There are no masses. The interspaces are clear Orthopedic GAIT ABNORMALITY: pronated, abducted, B/L DIGITAL DEFORMITIES: Digital contracture t9 underlapping t8 MUSCLE STRENGTH: 5/5 all groups in a symmetrical fashion , B/L General Examination GENERAL APPEARANCE: pleasant , alert, well nourished, well developed, well hydrated, with good attention to hygene/body habitus, and in no acute distress ORIENTED: person,place, and ti me Vascular DP PULSES(B): 2/4, B/L PT PULSES(B): 2/4, B/L CAPILLARY FILL TIME: 3 secs. per digit, B/L TEMPERTURE GRADIENT(C): warm to cool, pr oximal to distal, B/L TROPHIC CONDITION-TEXTURE/ELASTICITY/TURGOR/HAIR GROWTH(B): normal, B/L EDEMA(C): no edema, B/L TELANGECTASIA: absent VARICOSITIES: absent PIGMENTATION: normal, B/L Nails NAILS are: elongated,overgr own,dystrophic,greater than 3mm thick,discolored and friable with crumbly malodorous subungual debris, with pain on palpation, 1-5 Left foot, T5, T7, T9 X-Rays - IMAGING REPORT Findings: moderate generalized decrease in bone de nsity Digits: show exostosis of lorenzo ne at distal phalanx in area of pain, 5th digit HAV: Post-op XR shows gisselle t there is good clean bone resection without any evidence of sharp edges or bony spicules, there is rectus alignment of the osteotomized capital fragment with respect to the sesamoids, internal fixation appears intact and stable Views: 3 views of Foot, RIG HT Clinical Indication(s): Evaluate Biomech anical Deformity
--- OUTSIDE RECORDS SUMMARY | 2024-07-25 19:13 | XMS_ITS ---
Author Organization [facility] Address [address] [place] [address] Care Team Providers Care Ice Bag Assembler Name Role Phone José Luis DONIS, Pavithra Dewey Primary Care Provider Un available Remington Waldron Unavailable [phone] REASON FOR VISIT disk/notes faxed to [facility] Encounters Encounter Location Date [facility] [address] [address] 03/20/2024 Remington Waldron Plan Of Treatment No Information Progress Notes * Poncho ESQUIVEL PDOB:[birth year] (68 yo M)Acc No.[id number]:03/20/2024 Patient:?Poncho Esquivel :1955???Age:68 Y???Sex:Male Address:[address] [place] [address], [address] * true * Date:? Generated for Printi ludin/Yanique/eTransmitting on:?07/25/2024 07:13 PM EST
--- OUTSIDE RECORDS SUMMARY | 2024-07-25 19:14 | XMS_ITS ---
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 Generated for Elsii ludin/Yanique/eTransmitting on:?07/25/2024 07:13 PM EST
--- OUTSIDE RECORDS SUMMARY | 2024-07-25 19:14 | XMS_ITS | Patient Health Record ---
Author Organization [facility] Address [address] [place] [address] Care Team Providers Care Certified Technician Specialist Name Role Phone José Luis DONIS, Pavithra Dewey Primary Care Provider Un available Remington Waldron Unavailable [phone] Allergies Allergen (clinical drug ingredient) Drug/Non Drug Allergy documented on EMR Reaction Allergy Type Onset Date Status morphine Morphine vomiting Drug Allergy Active Reason For Referral No Information Medications Medication SIG (Take, Route, Fr equency, [...] Problem Status W/U Status Risk Notes Problem Pain in left foot (7922641767220 07) Pain in left foot (M79.672) Active confirmed Problem Acquired hammer toe of right foot (6777817249388 105) Other hammer toe(s) (acquired), right foot (M20.41) Active confirmed Vital Signs Height 5ft 8in in 03/13/2024 Weight 175 lbs 03/13/2024 BMI 26.61 kg/m2 03/13/2024 Encounters Encounter Location Date [facility] [address] [address] 03/13/2024 Remington Waldron Tinea unguium B35.1 ; Pain in right toe(s) M79.674 ; Pain in left toe(s) M79.675 and Other hammer toe(s) (acquired), right foot M20.41 [facility] [address] [place] [address] 01/04/2024 Remington Waldron [facility] [address] 03/20/2024 Remington Waldron Assessments Encounter Date Diagnosis (ICD Code) Assessment Notes Treatment Notes Treatment Clinical Notes Section Notes 03/13/2024 Pain in right toe(s) (ICD-10 - M79.674) 03/13/2024 Tinea unguium (ICD-10 - B35.1) 03/13/2024 Pain in left toe(s) (ICD-10 - M79.675) 03/13/2024 Other hammer toe(s) (acquired), right foot (ICD-10 - M20.41) Plan Of Treatment Pending Test Test Name Order Date X ray : Foot, left 2V 05/21/2015 *Liver Function Test (LFT) 06/19/2015 X ray : Foot, right 3V 03/13/2024 [id number] TENDON SHEATH/LIGAMENT 1 08/19/2014 Insurance Providers Payer Name Payer Address Payer Phone Subscriber Number Group Number Insured Name Patient Relationship to Insured Coverage Start Date Coverage End Date [facility] All Others [address] [place] [address] [phone] [id number] Poncho Galindo Self - patient is the insured Medical (General) History Medical History History ICD Code Polio Measles Mumps Chicken pox Broken bones Joint implants/screws Arthritis covid-19 Surgical History Surgery Date(Month/Year) leg and foot surgery, 15 ortho surgeries shoulder surgery
== END 2024-07-24 09:02 | disposition home or self-care (01) ==
LOC: HO.HMGCLDS 09:01
PROVIDERS: PCP Internal Medicine; Visit Provider Internal Medicine
DX: R42 Dizziness and giddiness (principal); Z86.39 Personal history of other endocrine, nutritional and metabolic disease; R73.01 Impaired fasting glucose; E78.00 Pure hypercholesterolemia, unspecified; E66.3 Overweight; R12 Heartburn; R74.8 Abnormal levels of other serum enzymes; Z12.5 Encounter for screening for malignant neoplasm of prostate
CPT/HCPCS: 36415; 80048; 80061; 82306; 82550; 84153; 84443; 84450; 84460; 85025

== ENCOUNTER 2024-07-24 09:25 | Outpatient (AMB) | payer BC, SELFPAY ==
--- NOTE | 2024-07-24 10:25 | MHC.OFFWIV ---
Intake Vital Signs 07/24/24 10:27 Weight 179 lb 2 oz BP 136/82 Blood Pressure Location Lt brachial Position Sitting Pulse 73 Pulse Source Pulse Oximeter Pulse Oximetry (%) 98 Oxygen Delivery Method Room Air Intake Visit Reasons: EP dizzy/off balance Intake Note: Patient here because he is still feeling dizzy, off balance an foggy which has been going on for about 2 weeks. Patient Tobacco Use Status: Never used Tobacco Allergies No Known Allergies [No Known Allergies*] Allergy (Verified 07/24/24 10:27) Do you need a note to return to daycare/school/sports/work: No HPI HPI Comments History of Present Illness Details History The patient is a 69-year-old male presenting with complaints of dizziness and balance disturbance. The symptoms have been accompanied by a buzzing sensation in his head, which he reports as persistent. The patient acknowledges a gradual, non-severe hearing loss over time, which he believes is normal with aging. Additionally, in the past day, he has experienced mild throat soreness noticed primarily when swallowing. He denies any significant changes in vision or severe headaches but mentions experiencing intermittent fatigue and mild low-grade headaches. He reports his blood pressure was 120/72 a week ago, but today it measured at 140/90. He does not monitor his blood pressure at home. The patient has a history of similar ear infections and is not on any medication for allergies. Physical Exam General: Cooperative, healthy appearing, comfortable and no acute distress Orientation/consciousness: Patient oriented x3 Limitations: No limitations Head: Normal to inspection Ears: right TM purulent effusion, left TM clear bubbles behind TM, EAC bilaterally normal, external ears normal bilaterally Nose: Normal external nose present, Normal nares present and No nasal discharge present Face and sinus: Normal facial exam Mouth: Normal oral and palatal mucosa present and moist mucous membranes Throat: Yes tonsils normal, Yes uvula midline. 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, right lower leg History of vitamin D deficiency Impaired fasting glucose Hypercholesterolemia Overweight (BMI 25.0-29.9) Shortness of breath at rest Epigastric pain Scrotal mass Acute pain in scrotum Bilateral finger arthralgia Osteoarthritis History of trigger finger Hx of orchitis Tinnitus Sequelae of poliomyelitis Surgical History S/P trigger finger release History of surgical removal of meniscus of knee H/O eye surgery History of shoulder surgery History of foot surgery Family History Father Lung cancer Mother Breast cancer Maternal Grandfather History of heart attack Maternal Grandmother History of heart attack Paternal Uncle DVT (deep venous thrombosis) Factor V Leiden mutation Brother No problems noted. Brother No problems noted. Sister No problems noted. Daughter No problems noted. Social History Housing: House Alcohol intake: current Patient Tobacco Use Status: Never used Tobacco e-Cigarette/Vaping Use: Never Used service: No Current occupational status: employed Cognitive needs: No Hearing needs: No Vision needs: No Review of Systems Const All systems reviewed & are unremarkable except as noted in HPI and below Physical Exam Vital Signs: Last Vital Signs Pulse 73 07/24/24 10:27 BP 140/90 H 07/24/24 10:27 Pulse Ox 98 07/24/24 10:27 Oxygen Delivery Method Room Air 07/24/24 10:27 Assessment & Plan Assessment & Plan (1) Otitis media: Code(s): H66.90 - Otitis media, unspecified, unspecified ear Qualifiers: Otitis media type: suppurative Chronicity: acute Laterality: right Recurrence: non-recurrent Spontaneous tympanic membrane rupture: without spontaneous rupture Qualified Code(s): H66.001 - Acute suppurative otitis media without spontaneous rupture of ear drum, right ear Plan: Plan - For Acute Otitis Media, Right Ear: Initiate treatment with amoxicillin for the infection. - For Fluid and Congestion in Ears: Recommend daily intake of an [id number] allergy medication to assist with fluid drainage. - For Elevated Blood Pressure: Suggest monitoring blood pressure with available resources such as local stores and retesting in clinic as needed. Ensure adequate hydration and rest to support recovery and follow up if symptoms persist or worsen. Patient was informed and verbally consented to the use of an ambient scribe for clinic note documentation during this visit Medications: New amoxicillin 875 mg PO Q12H 10 tabs 0RF Coding Level of Care Code Est Pt Level 3 (68377) Diagnoses Non-recurrent acute suppurative otitis media of right ear without spontaneous rupture of tympanic membrane H66.001 Otitis media type: suppurative Chronicity: acute Laterality: right Recurrence: non-recurrent Spontaneous tympanic membrane rupture: without spontaneous rupture
[2024-07-24 10:27] VITALS: BP 136/82; PULSE 73; O2SAT 98
== END 2024-07-24 11:21 | disposition home or self-care (01) ==
PROVIDERS: PCP Internal Medicine; Visit Provider Physician Assistant
DX: H66.001 Acute suppurative otitis media without spontaneous rupture of ear drum, right ear (principal)

== ENCOUNTER 2024-08-17 14:34 | Outpatient (AMB) | payer BC, SELFPAY ==
--- NOTE | 2024-08-17 14:48 | MHC.OFFWIV ---
Intake Vital Signs 08/17/24 14:50 Weight 180 lb BP 130/84 Blood Pressure Location Lt brachial Position Sitting Pulse 80 Pulse Source Pulse Oximeter Temp 98.1 F Temp Source Oral Pulse Oximetry (%) 98 Oxygen Delivery Method Room Air Intake Visit Reasons: EP ? UTI Intake Note: Patient here for bilat ear pain, dizziness, fatigued which started about 5 days ago. Patient Tobacco Use Status: Never used Tobacco Allergies No Known Allergies [No Known Allergies*] Allergy (Verified 08/17/24 14:50) Do you need a note to return to daycare/school/sports/work: No HPI HPI Comments History of Present Illness Details History - The patient is a 69-year-old male presenting with recurrent ear symptoms. - Diagnosed with acute otitis media initially on July 24; treated with amoxicillin with relief of symptoms but noted reoccurrence, now with symptoms in both ears. - Reports bilateral buzzing and occasional mild dizziness; no significant fever, hearing changes, or other nasal/throat symptoms. . Physical Exam General: Cooperative, healthy appearing, comfortable and no acute distress Orientation/consciousness: Patient oriented x3 Limitations: No limitations Head: Normal to inspection Ears: BELOW Nose: Normal external nose present, Normal nares present and No nasal discharge present Face and sinus: Normal facial exam and Yes sinuses nontender Mouth: Normal oral and palatal mucosa present and moist mucous membranes Throat: Yes tonsils normal, Yes uvula midline. 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, right lower leg History of vitamin D deficiency Impaired fasting glucose Hypercholesterolemia Overweight (BMI 25.0-29.9) Shortness of breath at rest Epigastric pain Scrotal mass Acute pain in scrotum Bilateral finger arthralgia Osteoarthritis History of trigger finger Hx of orchitis Tinnitus Sequelae of poliomyelitis Surgical History S/P trigger finger release History of surgical removal of meniscus of knee H/O eye surgery History of shoulder surgery History of foot surgery Family History Father Lung cancer Mother Breast cancer Maternal Grandfather History of heart attack Maternal Grandmother History of heart attack Paternal Uncle DVT (deep venous thrombosis) Factor V Leiden mutation Brother No problems noted. Brother No problems noted. Sister No problems noted. Daughter No problems noted. Social History Housing: House Alcohol intake: current Patient Tobacco Use Status: Never used Tobacco e-Cigarette/Vaping Use: Never Used service: No Current occupational status: employed Cognitive needs: No Hearing needs: No Vision needs: No Review of Systems Const All systems reviewed & are unremarkable except as noted in HPI and below Physical Exam Vital Signs: Last Vital Signs Temp 98.1 F 08/17/24 14:50 Pulse 80 08/17/24 14:50 BP 130/84 08/17/24 14:50 Pulse Ox 98 08/17/24 14:50 Oxygen Delivery Method Room Air 08/17/24 14:50 HEENT Ears: hearing grossly normal bilaterally, external ears normal, EAC's normal and TM abnormal (bilateral L>R) bulging, dull, wth effusion purulent and with loss of landmarks; not perforated Assessment & Plan Assessment & Plan (1) Bilateral acute otitis media: Code(s): H66.93 - Otitis media, unspecified, bilateral Plan: The patient is experiencing recurrent acute otitis media, for which a prescription of Augmentin for seven days is provided to ensure more comprehensive treatment following insufficient response to initial antibiotics. Monitoring of symptoms is advised, and further ENT evaluation might be considered if recurring infections persist. Patient was informed and verbally consented to the use of an ambient scribe for clinic note documentation during this visit Medications: New amoxicillin-pot clavulanate 875-125 mg 1 tab PO Q12H 14 tabs 0RF Coding Level of Care Code Est Pt Level 3 (93217) Diagnoses Bilateral acute otitis media H66.93
[2024-08-17 14:50] VITALS: BP 130/84; PULSE 80; TEMP 36.7; O2SAT 98
--- OUTSIDE RECORDS SUMMARY | 2024-08-17 15:56 | XMS_ITS ---
Author Organization [facility] Address [address] [place] [address] Care Team Providers Care Senior Media Planner Name Role Phone José Luis DONIS, Pavithra Dewey Primary Care Provider Un available Remintgon Waldron Unavailable [phone] Allergies Allergen (clinical drug ingredient) Drug/Non Drug [...] Problem Acquired hammer toe of right foot (1545012655348 105) Other hammer toe(s) (acquired), right foot (M20.41) Active confirmed Vital Signs Height 5ft 8in in 03/13/2024 Weight 175 lbs 03/13/2024 BMI 26.61 kg/m2 03/13/2024 Encounters Encounter Location Date Provider Diagnosis [facility] [address] [place] [address] 03/13/2024 Remington Waldron Tinea unguium B35.1 ; [...] as necessary. Patient chooses, no pharmaceutical tx (90916) Progress Notes * Poncho ESQUIVEL PDOB:[birth year] (68 yo M)Acc No.[id number]:03/13/2024 Progress Notes Patient:?Poncho Esquivel Samaria Provider:?Remington Waldron DPM :1955???Age:68 Y???Sex:Male Luis e:03/13/2024 Address:[address] [place] [address] Pcp:Raymundo Hernandez Subjective: * Chief Complaints: * [...] as necessary. Patient chooses, no pharmaceutical tx (24617).? * Procedure Codes:?84803 DEBRI DE NAIL, 6 OR MORE, Modifiers: XS 24037 X-RAY EXAM OF RIGHT FOOT 3V, Modifiers: [...] DPM Date:? 024 Generated for Rui noland/Yanique/eTransmitting on:?08/17/2024 03:56 PM EST History and Physical Notes * [...] ORIENTED: person,place, and ti me Vascular DP PULSES (B): 2/4, B/L PT PULSES (B): 2/4, B/L CAPILLARY FILL TIME: 3 secs. per digit, B/L TEMPERTURE GRADIENT (C): warm to cool, p roximal to distal, B/L TROPHIC CONDITION-TEXTURE/ELASTICITY/TURGOR/HAIR GROWTH (B): normal, B/L EDEMA (C): no edema, B/L TELANGECTASIA: absent VARICOSITIES: absent [...]
--- OUTSIDE RECORDS SUMMARY | 2024-08-17 15:56 | XMS_ITS | Patient Health Record ---
Author Organization [facility] Address [address] [place] [address] Care Team Providers Care Small Order Cutter Name Role Phone José Luis DONIS, Pavithra Dewey Primary Care Provider Un available Remington Waldron Unavailable [phone] Allergies Allergen (clinical drug ingredient) Drug/Non Drug [...] Risk Notes Problem Pain in left foot (5436428151677 07) Pain in left foot (M79.672) Active confirmed Problem Acquired hammer toe of right foot (6347760459599 105) Other hammer toe(s) (acquired), right foot (M20.41) Active confirmed Vital Signs Height 5ft 8in in 03/13/2024 Weight 175 lbs 03/13/2024 BMI 26.61 kg/m2 03/13/2024 Encounters Encounter Location Date Provider [facility] [address] [address] 03/13/2024 Remington Waldron Tinea unguium B35.1 ; Pain in right toe(s) M79.674 ; Pain in left toe(s) M79.675 and Other hammer toe(s) (acquired), right foot M20.41 [facility] [address] [place] [address] 01/04/2024 Remington Waldron [facility] [address] 03/20/2024 Remington Waldron Assessments Encounter Date Diagnosis [...] X ray : Foot, right 3V 03/13/2024 [id number] TENDON SHEATH/LIGAMENT 1 08/19/2014 Insurance Providers Payer Name Payer Address Payer Phone Subscriber Number Group Number Insured Name Patient Relationship to Insured Coverage Start Date Coverage End Date [facility] All Others [address] [place] [address] [phone] [id number] Poncho Galindo Self - patient is the insured Medical (General) History Medical History History ICD Code Polio Measles Mumps Chicken pox Broken bones Joint implants/screws Arthritis covid-19 Surgical History Surgery Date(Month/Year) leg and foot surgery, 15 ortho surgeries shoulder surgery
--- OUTSIDE RECORDS SUMMARY | 2024-08-17 15:56 | XMS_ITS ---
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 Generated for Elsii ludin/Yanique/eTransmitting on:?08/17/2024 03:56 PM EST
== END 2024-08-17 15:52 | disposition home or self-care (01) ==
PROVIDERS: PCP Internal Medicine; Visit Provider Physician Assistant
DX: H66.93 Otitis media, unspecified, bilateral (principal)

== ENCOUNTER 2024-09-13 08:09 | Outpatient (AMB) | payer BC, SELFPAY ==
[2024-09-13 08:23] VITALS: BP 136/72; PULSE 80; RESP 16; TEMP 36.6; O2SAT 98; BMI 27.1
--- NOTE | 2024-09-13 08:23 | MHC.PC.OV ---
Vital Signs 09/13/24 08:23 Height 5 ft 8 in Weight 178 lb BMI 27.1 BP 136/72 Blood Pressure Location Lt brachial Position Sitting Respiration 16 Pulse 80 Pulse Source Pulse Oximeter Temp 97.9 F Temp Source Oral Pulse Oximetry (%) 98 Oxygen Delivery Method Room Air Intake Visit Reasons: PE Intake Note: Pt is here today for his PE: last colonoscopy 09/20/22 Allergies No Known Allergies [No Known Allergies*] Allergy (Verified 09/13/24 08:24) Medication List - Last Reconciled 09/13/24 by Pavithra Ordonez MD cholecalciferol (vitamin D3) 50 mcg PO DAILY Tobacco use date assessed: 09/13/24 Fall risk assessment: No Falls in past year Last assessed Fall Risk: 09/13/24 Dental Screening Dental Screen Date: 09/13/24 Did you have a dental visit in the last 12 months?: Yes Did you have a dental problem in the last 6 months where you did not have access to dental care?: No Was dental information given to patient?: Patient has dentist HPI PE HPI Details - The patient is a 69-year-old male history polio, prediabetes, osteoarthritis, here today for physical exam - The patient?s recent blood work indicates an elevated blood glucose level in the prediabetic range, necessitating dietary and lifestyle modifications to prevent progression to diabetes. - The patient reports regular vitamin D supplementation, essential for bone health, at a dose of 2000 units daily. - Osteoarthritis, particularly affecting the collarbone, has been long-standing but does not involve joint dislocation. - Childhood polio has resulted in a slight leg length discrepancy, treated with a stunting procedure when the patient was 13, leaving him with a compensatory gait. - Tinnitus is an ongoing issue linked to past repeated ear infections, with scarring noted on examination. - Patient engages in resistance training, contributing to mild muscle enzyme elevation, likely due to greater exertion. - Borderline hypercholesterolemia is maintained without medication, as LDL levels are noted just above normal. - The patient consumes alcohol moderately but has reduced intake to encourage healthier habits. - Blood glucose monitoring and dietary moderation to manage prediabetes. - Regular exercise recommended to help manage blood glucose and lower cardiovascular risk. - Emphasis on vitamin D supplementation, with a dose of 2000 units daily. - Screening blood test results indicate normal thyroid function, adequate hydration, normal kidney and liver function. Prostate exam was normal. - Cholesterol level remains borderline with normal HDL levels. - No recent flu vaccination or updated COVID-19 vaccine doses; received initial vaccinations and one booster shot. - Shingles vaccination not completed; advised to check with the pharmacy regarding completing the series. - Discussion surrounding pneumonia vaccination was declined by the patient. - Dental hygiene maintained with bi-annual cleanings and no use of dental prostheses. 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, right lower leg History of vitamin D deficiency Impaired fasting glucose Hypercholesterolemia Overweight (BMI 25.0-29.9) Shortness of breath at rest Epigastric pain Scrotal mass Acute pain in scrotum Bilateral finger arthralgia Osteoarthritis History of trigger finger Hx of orchitis Tinnitus Sequelae of poliomyelitis Surgical History S/P trigger finger release History of surgical removal of meniscus of knee H/O eye surgery History of shoulder surgery History of foot surgery Family History Father Lung cancer Mother Breast cancer Maternal Grandfather History of heart attack Maternal Grandmother History of heart attack Paternal Uncle DVT (deep venous thrombosis) Factor V Leiden mutation Brother No problems noted. Brother No problems noted. Sister No problems noted. Daughter No problems noted. Social History Housing: House Alcohol intake: current Patient Tobacco Use Status: Never used Tobacco e-Cigarette/Vaping Use: Never Used service: No Current occupational status: employed Cognitive needs: No Hearing needs: No Vision needs: No Questionnaire PHQ-9 Over the last 2 weeks, how often have you been bothered by any of the following problems? 1. Little interest or pleasure in doing things: not at all 2. Feeling down, depressed, or hopeless: not at all 3. Trouble falling or staying asleep, or sleeping too much: not at all 4. Feeling tired or having little energy: not at all 5. Poor appetite or overeating: not at all 6. Feeling bad about yourself - or that you are a failure or have let yourself or your family down: not at all 7. Trouble concentrating on things, such as reading the newspaper or watching television: not at all 8. Moving or speaking so slowly that other people could have noticed. Or the opposite - being so fidgety or restless that you have been moving around a lot more than usual: not at all 9. Thoughts that you would be better off or of hurting yourself in some way: not at all Total score: 0 Depression Screening Interpretation: Negative Depression Screening Done: Yes 98510 - PHQ-9 Billing: Yes Source: Developed by Drs. Shantanu Landaverde, Lexis Pablo, Sandip Almodovar and colleagues, with an educational sweta from [employer]. Thrive Questionnaire Date Thrive assessed: 09/13/24 I am a: Patient What is your living situation today?: I have a steady place to live Within the past 12 months, did the food you bought not last and you didn't have the money to get more?: Never true Within the past 12 months, did you worry whether your food would run out before you got money to buy more?: Never true Do you have trouble paying for medicines?: No Do you have trouble getting transportation to medical appointments?: No Do you have trouble paying your heating and electricity bill?: No Do you have trouble taking care of your child, family member or friend?: No Do you have trouble with day-to-day activities such as bathing, preparing meals, shopping, managing finances, etc.?: No Are you currently unemployed and looking for a job?: No Are you interested in more education?: No THRIVE Score: 0 AUDIT C Alcohol Use Questionnaire (AUDIT-C) 1. How often do you have a drink containing alcohol?: 2-3 times a week 2. How many drinks containing alcohol do you have on a typical day when you are drinking?: 1 or 2 3. How often do you have six or more drinks on one occasion?: Never Total Score: 3 SUMIT-7 AMB Questionnaire SUMIT-7 Date SUMIT - 7 assessed: 09/13/24 Feeling nervous, anxious, or on edge: 0 = Not at all Not being able to stop or control worryin = Not at all Worrying too much about different things: 0 = Not at all Trouble relaxin = Not at all Being so restless that it is hard to sit still: 0 = Not at all Becoming easily annoyed or irritable: 0 = Not at all Feeling afraid as if something awful might happen: 0 = Not at all Total SUMIT-7 score (0-4 normal; 5-9 mild; 10-14 moderate; 15-21 severe): 0 Source: Developed by Drs. Shantanu Landaverde, Lexis Pablo, Sandip Almodovar and colleagues, with an educational sweta from [employer]. SUMIT-7 Assessment Billing SUMIT-7 Assessment Tool: SUMIT-7 Assessment 09437 Review of Systems Const Denies fever(s), Denies headache(s) and Denies weakness Eyes Details: Followed at [facility] Reports no additional complaints ENT Details: Dental prophylaxis every 6 months Denies dizziness, Denies headache(s), Denies nasal congestion, Denies nasal discharge and Denies sore throat Card Denies chest pain and Denies lightheadedness Resp Denies chest congestion and Denies cough GI Denies abdominal pain, Denies change in bowel habits and Denies heartburn Reports no additional complaints Musc Reports arthralgias (occasional in right knee/ fingers ), Denies joint swelling and Reports stiffness (right lower leg/ fingers ) Skin/Breast Denies lesions and Denies rash Neuro Denies dizziness, Denies headache(s) and Denies weakness Psych Reports no additional complaints Endo Reports no additional complaints Abdi/Lymph Reports no additional complaints Aller/Immun Reports no additional complaints Physical exam (Primary Care) Vital Signs: Last Vital Signs Temp 97.9 F 09/13/24 08:23 Pulse 80 09/13/24 08:23 Resp 16 09/13/24 08:23 BP 136/72 09/13/24 08:23 Pulse Ox 98 09/13/24 08:23 Oxygen Delivery Method Room Air 09/13/24 08:23 BMI result Body Mass Index 27.1 Tobacco/Smoking Status: Tobacco use Status Tobacco use date assessed 09/13/24 09/13/24 08:24 Patient Tobacco Use Status Never used Tobacco 09/13/24 08:24 e-Cigarette/Vaping Use Never Used 09/13/24 08:24 PHQ-9: PHQ-9 Score PHQ-9: Total score 0 09/13/24 09:00 Depression Screening Interpretation: Negative Thrive Assessment: Date of Thrive Assessment Date Thrive assessed 09/13/24 09/13/24 08:36 Advance Care Planning discussion: Completed/Scanned Date of discussion: 09/13/24 Who was present: Patient Forms completed: Health Care Proxy and MOLST Time spent: 16-45 minutes Actual minutes spent: 5 Const General: cooperative, comfortable, no acute distress and alert Nutritional Appearance: overweight Orientation/consciousness: patient oriented x3 HENMT Face and sinus: Yes sinuses nontender Mouth: Normal oral and palatal mucosa present, oropharynx normal and moist mucous membranes Eyes General: appearance normal, both eyes and all related structures Neck Neck: Yes full ROM, Yes no lymphadenopathy and Yes supple Thyroid: Thyroid normal Chest Chest palpation & inspection: normal inspection of the chest Resp Effort & Inspection: normal respiratory effort and able to speak in complete sentences Auscultation: clear to auscultation bilaterally Cardio Other: S1-S2 present regular rate and rhythm GI Inspection: Yes normal to inspection Palpation (GI): Soft to palpation, no guarding and no masses General: Yes no CVA tenderness Male General Exam: Yes normal external exam, No hernia and No inguinal lymphadenopathy Penis: normal penis and circumcised Scrotum: scrotum normal and testes descended bilaterally Back/Spine/Pelvis Back: no CVA tenderness Cervical Spine: normal cervical lordosis Thoracic/Lumbar Spine: thoracic and lumbar spine normal to inspection Skin General skin exam: no rashes or lesions noted Neuro Other: Has a limping gait, right leg shorter than left General: patient oriented x3, tone normal, moves all extremities, Normal light touch and pain sensation, no focal motor deficits and CN's II-XI intact bilaterally Extrem Other: Has a limping gait, right leg shorter than left General: Yes full ROM, Yes no joint enlargement, Yes no clubbing, cyanosis or edema and Yes no calf tenderness Psych Appearance: grossly normal and well kempt Mental Status: mental status grossly normal Speech and movement: Normal speech and movement present Affect: normal affect Attitude: cooperative Thought process: Normal thought process present Thought content: Normal thought content present Results Reviewed Results Reviewed: yunior: Poncho Galindo Age/Sex: 69/M : 1955 Unit#: [id number] Attend Dr: Pavithra Ordonez MD Re07/24/24 Status: DEP [facility] Disch: SPEC : [id number] FRANNIE: 07/24/24 STATUS: COMP REQ : [id number] RECD: 07/24/[address]: Pavithra Ordonez MD COMP: 07/24/24 ENTERED: 07/24/24 [facility] DR: ORDERED: CBC Auto Diff Test Result Flag Reference WBC 3.8 L 4.8-10.8 X10*3/uL RBC 4.43 L 4.60-5.80 X10*6/uL HGB 14.3 14.0-18.0 g/dl HCT 41.7 L 42.0-52.0 % MCV 94.1 80.0-98.0 fL MCH 32.3 27.0-33.0 pg MCHC 34.3 31.0-36.0 g/dl RDW 12.9 11.0-16.0 % PLT 194 160-400 X10*3/uL MPV 12.0 9.4-12.4 fL Neut Pct Auto 47.4 45-73 % ImGran Pct Auto 0.3 0.0-0.4 % Lymp Pct Auto 38.8 20-40 % Aurora Pct Auto 8.3 2-11 % Eos Pct Auto 3.9 0-4 % Baso Pct Auto 1.3 0-2 % NRBC Pct Auto 0.0 0.0-0.2 /100WBC ANC Neut Abs # 1.8 L 2.0-8.3 x10*3/uL ImGran Abs Auto 0.01 0.00-0.03 X10*3/uL Lymph Abs Auto 1.5 1.2-4.9 X10*3/uL Aurora Abs Auto 0.3 0.1-1.2 X10*3/uL Eos Abs Auto 0.2 0.0-0.4 X10*3/uL Baso Abs Auto 0.1 0.0-0.2 X10*3/uL NRBC Abs Auto 0.000 0.0-0.012 X10*3/uL Name: Poncho Galindo Age/Sex: 69/M : 1955 Unit#: [id number] Attend Dr: Pavithra Ordonez MD Re07/24/24 Status: DEP REF Location: [facility] Disch: SPEC : [id number] FRANNIE: 07/24/24 STATUS: COMP REQ : [id number] RECD: 07/24/[address]: Pavithra Ordonez MD COMP: 07/24/24 ENTERED: 07/24/24 [facility] DR: ORDERED: Met Prof Fast, AST, ALT, CK Total, Lipid Panel, Vitamin D 25-OH, TSH Rfl Test Result Flag Reference Sodium 140 135-145 mmol/L Potassium 4.7 3.3-5.1 mmol/L CL 105 96-108 mmol/L CO2 27 22-29 mmol/L Gap 13 12-20 BUN 11 9-16 mg/dL Creat 0.85 0.5-1.4 mg/dL eGFR > 60 Chronic Kidney Disease: Estimated GFR < 60 mL/min/1.73m2 Severe Kidney Disease: Estimated GFR < 15 mL/min/1.73m2 FBS 122 H 60-99 mg/dL A fasting glucose from 100-125 mg/dl is considered impaired (pre-diabetes). CA 8.9 # 8.4-10.2 mg/dL AST (GOT) 30 5-37 U/L ALT (GPT) 39 0-40 U/L CK Total 264 H 38-174 U/L Triglyceride 54 <150 mg/dL Desirable Triglyceride: less than 150 mg/dL Borderline High Triglyceride 150-199 mg/dL High Triglyceride: 200-499 mg/dL Very High Triglyceride: greater than or equal to 5OO mg/dL Cholesterol 212 H <200 mg/dL Desirable Cholesterol: less than 200 mg/dL Borderline High Cholesterol: 200-239 mg/dL High Cholesterol: greater than 239 mg/dL LDL Calculated 125 H <100 mg/dL Desirable LDL: less than 100 mg/dL Near Optimal/Above Optimal LDL: 110-129 mg/dL Borderline High LDL: 130-159 mg/dL High LDL: 160-189 mg/dL Very High LDL: greater than or equal to 190 mg/dL HDL 77 >40 mg/dL Desirable HDL: greater than 40 mg/dL Note: This HDL assay may give artificially low results in patients with liver disease. Vit D 25-OH Tot 70.7 >30 ng/mL Health Based Reference Values* < 20 ng/mL Deficient 20-30 ng/mL Insufficient > 30 ng/mL Sufficient *Rodríguez MART. N Engl J Med. 2007;357:266-280 Care must be taken in interpreting Vitamin D results from different laboratories and methodologies. Published data demonstrated that results from patients undergoing hemodialysis may show a negative bias when tested with various automated 25-OH vitamin D assays when compared to LC-MS/MS. When testing samples from patients whose predominant form of Vitamin D is Vitamin D2, such as patients receiving Vitamin D2 supplementation, results that are subtherapeutic should be confirmed with another method such as LC-MS/MS. TSH 1.20 0.32-4.0 uIU/mL Coding Level of Care Code Est Pt Prev Care >65y(92428) Diagnoses Annual visit for general adult medical examination with abnormal findings Z00.01 Impaired fasting glucose R73.01 Advanced directives, counseling/discussion Z71.89 Additional Codes PHQ-9 - 21397 - PHQ-9 Billing: Yes ([id number]) Vital Signs *Quality* - Advance Care Planning discussion: Completed/Scanned ([id number]) Vital Signs *Quality* - Time spent: 16-45 minutes ([id number]) SUMIT-7 Assessment Billing - SUMIT-7 Assessment Tool: SUMIT-7 Assessment 96870 ([id number]) Assessment & Plan Assessment & Plan (1) Annual visit for general adult medical examination with abnormal findings: Code(s): Z00.01 - Encounter for general adult medical examination with abnormal findings (2) Impaired fasting glucose: Code(s): R73.01 - Impaired fasting glucose Category: Medical (3) Advanced directives, counseling/discussion: Code(s): Z71.89 - Other specified counseling Plan: Initiated the conversation about Advanced Directives. Advanced Directives help patients prepare for current and future decisions about their medical treatment and place of care. Discussed with patient that it is a process where a patients current condition and prognosis are reviewed, their wishes for information regarding their illness are elicited, and likely medical dilemmas are presented and options discussed. Healthcare proxy form completed. The form can be amended as needed, reviewed yearly and make changes as needed Plan The approach involves managing prediabetes with lifestyle modifications prioritizing regular exercise and dietary changes to limit high-sugar foods. Osteoarthritis is controlled with ibuprofen as needed, and the patient continues with adequate vitamin D supplementation for bone health. Vigilance in monitoring both tinnitus and cholesterol is advised, with the current cholesterol levels not necessitating medication due to balanced LDL and HDL levels. The patient is encouraged to focus on nutrition and moderate exercise to manage any increase in muscle enzymes and to maintain an active lifestyle. A review with audiology for tinnitus and exploration of past vaccinations, particularly shingles and pneumonia, is advised. Repeat evaluations and possible screenings should align with future wellness visits. Last colonoscopy was done by Dr. Gatica 09/06/2019 which only showed presence of internal hemorrhoids, repeat colonoscopy due again in 2029 Patient was informed and verbally consented to the use of an ambient scribe for clinic note documentation during this visit.
--- OUTSIDE RECORDS SUMMARY | 2024-09-13 10:59 | XMS_ITS ---
[facility] Organization [facility] Address [address] [place] [address] Care Team Providers Care Aircraft Electrical Systems Specialist Name Role Phone José Luis DONIS, Pavithra Dewey Primary Care Provider Un available Remington Waldron Unavailable [phone] REASON FOR VISIT disk/notes faxed to [facility] Encounters Encounter Location Date Provider [facility] [address] [address] 03/20/2024 Remington Waldron Plan Of Treatment No Information Progress Notes * Poncho ESQUIVEL PDOB:[birth year] (68 yo M)Acc No.[id number]:03/20/2024 Patient:?Poncho Esquivel :1955???Age:68 Y???Sex:Male Address:[address] [place] [address], [address] * true * Date:? Generated for Printi ludin/Yanique/eTransmitting on:?09/13/2024 10:59 AM EST
--- OUTSIDE RECORDS SUMMARY | 2024-09-13 10:59 | XMS_ITS | Patient Health Record ---
Author [facility] Address [address] [place] [address] Care Team Providers Care Parcel Carrier Name Role Phone José Luis DONIS, Pavithra Dewey Primary Care Provider Un available Remington Waldron Unavailable [phone] Morales Diaz Unavailable [phone] Allergies Allergen (clinical drug ingredient) Drug/Non Drug [...] Risk Notes Problem Pain in left foot (1813223233481 07) Pain in left foot (M79.672) Active confirmed Problem Acquired hammer toe of right foot (7746130363640 105) Other hammer toe(s) (acquired), right foot (M20.41) Active confirmed Vital Signs Height 5ft 8in in 03/13/2024 Weight 175 lbs 03/13/2024 BMI 26.61 kg/m2 03/13/2024 Encounters Encounter Location Date Provider [facility] [address] [address] 03/13/2024 Remington Waldron Tinea unguium B35.1 ; Pain in right toe(s) M79.674 ; Pain in left toe(s) M79.675 and Other hammer toe(s) (acquired), right foot M20.41 [facility] [address] [place] [address] 01/04/[address] [facility] [address] [address] 03/20/2024 Remington Waldron Assessments Encounter Date Diagnosis [...] X ray : Foot, right 3V 03/13/2024 [id number] TENDON SHEATH/LIGAMENT 1 08/19/2014 Insurance Providers Payer Name Payer Address Payer Phone Subscriber Number Group Number Insured Name Patient Relationship to Insured Coverage Start Date Coverage End Date [facility] Others [address] [place] [address] [id number] Poncho Galindo Self - patient is the insured Medical (General) History Medical History History ICD Code Polio Measles Mumps Chicken pox Broken bones Joint implants/screws Arthritis covid-19 Surgical History Surgery Date(Month/Year) leg and foot surgery, 15 ortho surgeries shoulder surgery
--- OUTSIDE RECORDS SUMMARY | 2024-09-13 10:59 | XMS_ITS ---
Author Organization [facility] Address [address] [place] [address] Care Team Providers Care Stiff Straw Hat Washer Name Role Phone José Luis DONIS, Pavithra Dewey Primary Care Provider Un available Remington Waldron Unavailable [phone] Allergies Allergen (clinical drug ingredient) Drug/Non Drug [...] Problem Acquired hammer toe of right foot (4842369967747 105) Other hammer toe(s) (acquired), right foot (M20.41) Active confirmed Vital Signs Height 5ft 8in in 03/13/2024 Weight 175 lbs 03/13/2024 BMI 26.61 kg/m2 03/13/2024 Encounters Encounter Location Date Provider Diagnosis [facility] [address] [place] [address] 03/13/2024 Remington Waldron Tinea unguium B35.1 ; [...] as necessary. Patient chooses, no pharmaceutical tx (05548) Progress Notes * Poncho ESQUIVEL PDOB:[birth year] (68 yo M)Acc No.[id number]:03/13/2024 Progress Notes Patient:?Poncho Esquivel Samaria Provider:?Remington Waldron DPM :1955???Age:68 Y???Sex:Male Luis e:03/13/2024 Address:[address] [place] [address] Pcp:Raymundo Hernandez Subjective: * Chief Complaints: * [...] as necessary. Patient chooses, no pharmaceutical tx (72039).? * Procedure Codes:?14514 DEBRI DE NAIL, 6 OR MORE, Modifiers: XS 01989 X-RAY EXAM OF RIGHT FOOT 3V, Modifiers: [...] DPM Date:? 024 Generated for Rui noland/Yanique/eTransmitting on:?09/13/2024 10:59 AM EST History and Physical Notes * HPI [...]
--- OUTSIDE RECORDS SUMMARY | 2024-09-13 11:00 | XMS_ITS ---
Author Organization [facility] Address [address] [place] [address] Care Team Providers Care Bacteriology Teacher Name Role Phone José Luis DONIS, Pavithra Dewey Primary Care Provider Un available Remington Waldron Unavailable [phone] Morales Diaz Unavailable [phone] Encounters Encounter Location Date Provider [facility] [address] [place] [address] 09/05/2024 Morales Diaz Plan Of Treatment No Information Progress Notes * ALVIN Poncho PDOB:[birth year] (69 yo M)Acc No.[id number]:09/05/2024 Progress Note Patient:Poncho SEXTON Provider:?Morales Diaz DPM :1955???Age:69 Y???Sex:Male Luis e:09/05/2024 Address:[address] [place], [place] [id number] Pcp:Raymundo Hernandez Subjective: * Chief Complaints: * ??? * Medical History:? Objective: * Vitals:? Assessment: Plan: * Treatment: * Images: * The named appointment provid er may or may not be the originator of this progress note, and it is not deemed complete until electronically signed by the appointment provider. Sign off status: Pending * Provider:?Morales Diaz DPM Date:?2024 Generated for Rui noland/Yanique/Fishitting on:?09/13/2024 10:59 AM EST
== END 2024-09-13 09:22 | disposition home or self-care (01) ==
PROVIDERS: PCP Internal Medicine; Visit Provider Internal Medicine
DX: Z00.01 Encounter for general adult medical examination with abnormal findings (principal); R73.01 Impaired fasting glucose; Z71.89 Other specified counseling

== ENCOUNTER → 2024-09-13 08:09 | Outpatient (BNVA) | payer BC, SELFPAY | PROVIDERS: PCP Internal Medicine; Visit Provider Internal Medicine | DX: Z00.01 Encounter for general adult medical examination with abnormal findings (principal); R73.01 Impaired fasting glucose; Z71.89 Other specified counseling | CPT/HCPCS: 96127 ==

== ENCOUNTER 2024-11-26 08:42 | Outpatient (AMB) | payer BC, SELFPAY ==
--- NOTE | 2024-11-26 09:10 | MHC.OFFWIV ---
Intake Vital Signs 11/26/24 09:18 Weight 176 lb BP 140/80 H Blood Pressure Location Lt brachial Position Sitting Pulse 74 Pulse Source Pulse Oximeter Pulse Oximetry (%) 98 Oxygen Delivery Method Room Air Intake Visit Reasons: EP Yellow patch on stomach? Intake Note: Patient here for yellow spot on stomach that has been present for about 1 week. Patient Tobacco Use Status: Never used Tobacco Allergies No Known Allergies [No Known Allergies*] Allergy (Verified 11/26/24 09:19) Do you need a note to return to daycare/school/sports/work: No HPI HPI Comments History of Present Illness Details 69 y/o Male patient who presents to the walk in clinic with c/o Yellow Spot on the Abdomen x 1 week. Denies abdominal pain or any GI symptoms. Denies Jaundice of eyes. Recent Lab work shows Slightly elevated levels of Cholesterol and LDL (2023). 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, right lower leg History of vitamin D deficiency Impaired fasting glucose Hypercholesterolemia Overweight (BMI 25.0-29.9) Shortness of breath at rest Epigastric pain Scrotal mass Acute pain in scrotum Bilateral finger arthralgia Osteoarthritis History of trigger finger Hx of orchitis Tinnitus Sequelae of poliomyelitis Surgical History S/P trigger finger release History of surgical removal of meniscus of knee H/O eye surgery History of shoulder surgery History of foot surgery Family History Father Lung cancer Mother Breast cancer Maternal Grandfather History of heart attack Maternal Grandmother History of heart attack Paternal Uncle DVT (deep venous thrombosis) Factor V Leiden mutation Brother No problems noted. Brother No problems noted. Sister No problems noted. Daughter No problems noted. Social History Housing: House Alcohol intake: current Patient Tobacco Use Status: Never used Tobacco e-Cigarette/Vaping Use: Never Used service: No Current occupational status: employed Cognitive needs: No Hearing needs: No Vision needs: No Review of Systems Const All systems reviewed & are unremarkable except as noted in HPI and below Physical Exam Vital Signs: Last Vital Signs Pulse 74 11/26/24 09:18 BP 140/80 H 11/26/24 09:18 Pulse Ox 98 11/26/24 09:18 Oxygen Delivery Method Room Air 11/26/24 09:18 Const General: comfortable and no acute distress Nutritional Appearance: well nourished Orientation/consciousness: patient oriented x3 GI Palpation (GI): Soft to palpation, not firm, nontender, no guarding, not rigid and No hepatosplenomegaly present Auscultation: normal bowel sounds Rectal Exam - Male: Yes deferred Abdomen image: 1. Small area of yellowish discoloration skin, superficial non TTP. Neuro General: patient oriented x3 Psych Speech and movement: Normal speech and movement present Assessment & Plan Assessment & Plan (1) Discolored skin: Code(s): L81.9 - Disorder of pigmentation, unspecified Plan: DDx's: Carotenemia vs Xanthelasma vs Tinea. Not clear etiology of this discoloration. ?? Elevated Ava and LDL Pt has an appointment with Dermatology next month F/U with PCP. Coding Level of Care Code Est Pt Level 4 (98567) Diagnoses Discolored skin L81.9 Time Spent (min) 20
--- OUTSIDE RECORDS SUMMARY | 2024-11-26 09:16 | XMS_ITS | Patient Health Record ---
Author Organization [facility] Address [address] [place] [address] Care Team Providers Care Wrapper Opener Name Role Phone José Luis DONIS, Pavithra Dewey Primary Care Provider Un available Remington Waldron Unavailable [phone] Morales Diaz Unavailable [phone] Allergies Allergen (clinical drug ingredient) Drug/Non Drug [...] Risk Notes Problem Pain in left foot (1465181870957 07) Pain in left foot (M79.672) Active confirmed Problem Acquired hammer toe of right foot (4901552446646 105) Other hammer toe(s) (acquired), right foot (M20.41) Active confirmed Vital Signs Height 5ft 8in in 03/13/2024 Weight 175 lbs 03/13/2024 BMI 26.61 kg/m2 03/13/2024 Encounters Encounter Location Date [facility] [address] [address] 03/13/2024 Remington Waldron Tinea unguium B35.1 ; Pain in right toe(s) M79.674 ; Pain in left toe(s) M79.675 and Other hammer toe(s) (acquired), right foot M20.41 [facility] [address] [place] [address] 01/04/2024 Remington Waldron [facility] [address] [address] 03/20/2024 Remington Waldron Assessments Encounter Date Diagnosis [...] X ray : Foot, right 3V 03/13/2024 [id number] TENDON SHEATH/LIGAMENT 1 08/19/2014 Insurance Providers Payer Name Payer Address Payer Phone Subscriber Number Group Number Insured Name Patient Relationship to Insured Coverage Start Date Coverage End Date [facility] All Others [address] [place] [address] [id number] Poncho Galindo Self - patient is the insured Medical (General) History Medical History History ICD Code Polio Measles Mumps Chicken pox Broken bones Joint implants/screws Arthritis covid-19 Surgical History Surgery Date(Month/Year) leg and foot surgery, 15 ortho surgeries shoulder surgery
--- OUTSIDE RECORDS SUMMARY | 2024-11-26 09:17 | XMS_ITS ---
Author Organization [facility] Address [address] [place] [address] Care Team Providers Care Implementation Coordinator Name Role Phone José Luis DONIS, Pavithra Dewey Primary Care Provider Un available Remington Waldron Unavailable [phone] REASON FOR VISIT disk/notes faxed to [facility] Encounters Encounter Location Date Provider [facility] [address] [address] 03/20/2024 Remington Waldron Plan Of Treatment No Information Progress Notes * Poncho ESQUIVEL PDOB:[birth year] (68 yo M)Acc No.[id number]:03/20/2024 Patient:?Poncho Esquivel :1955???Age:68 Y???Sex:Male Address:[address] [place] [address], [address] * true * Date:? Generated for Printi ng/Yanique/eTransmitting on:?11/26/2024 09:17 AM EDT
--- OUTSIDE RECORDS SUMMARY | 2024-11-26 09:17 | XMS_ITS ---
Author Organization [facility] Address [address] [place] [address] Care Team Providers Care Cyanide Pot Hardener Name Role Phone José Luis DONIS, Pavithra Dewey Primary Care Provider Un available Remington Waldron Unavailable [phone] Morales Diaz Unavailable [phone] Encounters Encounter Location Date Provider [facility] [address] [place] [phone] 09/05/2024 Morales Diaz Plan Of Treatment No Information Progress Notes * Poncho ESQUIVEL PDOB:[birth year] (69 yo M)Acc No.[id number]:09/05/2024 Progress Note Patient:Poncho SEXTON Provider:?Morales Diaz DPM :1955???Age:69 Y???Sex:Male Luis e:09/05/2024 Address:[address] [place], [place] [id number] Pcp:Raymundo Hernandez Subjective: * Chief Complaints: * ??? * Medical History:? Objective: * Vitals:? Assessment: Plan: * Treatment: * Images: * The named appointment provid er may or may not be the originator of this progress note, and it is not deemed complete until electronically signed by the appointment provider. Sign off status: Pending * Provider:?Morales Diaz DPM Date:?2024 Generated for Rui noland/Yanique/Fishitting on:?11/26/2024 09:17 AM EDT
[2024-11-26 09:18] VITALS: BP 140/80; PULSE 74; O2SAT 98
== END 2024-11-26 11:04 | disposition home or self-care (01) ==
PROVIDERS: PCP Internal Medicine; Visit Provider Nurse Practitioner Family
DX: L81.9 Disorder of pigmentation, unspecified (principal)

== ENCOUNTER → 2024-11-26 08:42 | Outpatient (BNVA) | payer BC, SELFPAY | PROVIDERS: PCP Internal Medicine; Visit Provider Nurse Practitioner Family | DX: Z13.89 Encounter for screening for other disorder (principal) ==

== ENCOUNTER 2025-02-08 09:12 | Outpatient (AMB) | payer BC, SELFPAY ==
--- NOTE | 2025-02-08 09:13 | AM.OFFWIN_ITS ---
Intake Vital Signs 02/08/25 09:14 Height 5 ft 8 in Weight 159 lb BMI 24.2 BP 142/76 H Blood Pressure Location Lt brachial Position Sitting Pulse 82 Pulse Source Pulse Oximeter Temp 98.1 F Temp Source Oral Pulse Oximetry (%) 97 Oxygen Delivery Method Room Air Intake Visit Reasons: EP rash on RT upper hand Intake Note: Patient present with rash on upper right arm times about 1wk, notice warm to touch yesterday Patient Tobacco Use Status: Never used Tobacco Allergies No Known Allergies (No Known Allergies*) Allergy (Verified 02/08/25 09:18) Do you need a note to return to daycare/school/sports/work: No HPI HPI Comments History of Present Illness Details History of Present Illness - The patient is a 69-year-old male pres enting with a rash on the right upper arm. - The rash has been present for approxim ately one week and was initially thought to be a sunburn. - The patient reports occasional itching and a stinging sensation, with the rash being warm to the touch. - The rash is suspected to have started with a bug bite - The area of erythema has been noted to be expanding over the past week. Physical Exam General: Cooperative, healthy appearing, comfortable, no acute distress and well developed Orientation: Patient oriented x3 Limitations: No limitations Head: Normal to inspection Ears: Hearing grossly normal bilaterally Nose: Normal External nose present Face and sinus: Normal facial exam Eyes: Appearance normal, both eyes and all related structures Neck: Normal visual inspection and Yes full ROM Respiratory: Normal respiratory effort and able to speak in complete sentences. 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, right lower leg History of vitamin D deficiency Impaired fasting glucose Hypercholesterolemia Overweight (BMI 25.0-29.9) Shortness of breath at rest Epigastric pain Scrotal mass Acute pain in scrotum Bilateral finger arthralgia Osteoarthritis History of trigger finger Hx of orchitis Tinnitus Sequelae of poliomyelitis Surgical History S/P trigger finger release History of surgical removal of meniscus of knee H/O eye surgery History of shoulder surgery History of foot surgery Family History Father Lung cancer Mother Breast cancer Maternal Grandfather History of heart attack Maternal Grandmother History of heart attack Paternal Uncle DVT (deep venous thrombosis) Factor V Leiden mutation Brother No problems noted. Brother No problems noted. Sister No problems noted. Daughter No problems noted. Social History Housing: House Alcohol intake: current Patient Tobacco Use Status: Never used Tobacco e-Cigarette/Vaping Use: Never Used service: No Current occupational status: employed Cognitive needs: No Hearing needs: No Vision needs: No Review of Systems Const All systems reviewed & are unremarkable except as noted in HPI and below Physical Exam Vital Signs: Last Vital Signs Temp 98.1 F 02/08/25 09:14 Pulse 82 02/08/25 09:14 BP 142/76 H 02/08/25 09:14 Pulse Ox 97 02/08/25 09:14 Oxygen Delivery Method Room Air 02/08/25 09:14 BMI result Body Mass Index 24.2 Assessment & Plan Assessment & Plan (1) Cellulitis: Code(s): L03.90 - Cellulitis, unspecified Qualifiers: Site of cellulitis: extremity Site of cellulitis of extremity: upper extremity Laterality: right Qualified Code(s): L03.113 - Cellulitis of right upper limb Plan: - Initiate treatment with Keflex, an antibiotic, to be taken every six hours for one week. - Marked the area of erythema to monitor changes in size. - Advise the patient to return if the rash continues to expand after 48 hours or if there is no improvement by Tuesday. - Discuss the possibility of MRSA and the need for additional antibiotics if necessary, pt will return if worsening by Tuesday. Patient was informed and verbally consented to the use of an ambient scribe for clinic note documentation during this visit. Medications: New cephalexin 500 mg PO Q6H 28 caps 0RF Coding Level of Care Code Est Pt Level 3 (64924) Diagnoses Cellulitis of right upper extremity L03.113 Site of cellulitis: extremity Site of cellulitis of extremity: upper extremity Laterality: right
[2025-02-08 09:14] VITALS: BP 142/76; PULSE 82; TEMP 36.7; O2SAT 97; BMI 24.2
--- OUTSIDE RECORDS SUMMARY | 2025-02-08 09:32 | XMS_ITS | Patient Health Record ---
Author Organization [facility] Address [address] [place] [address] Care Team Providers Care Level Vial Grinder Name Role Phone José Luis DONIS, Pavithra Dewey Primary Care Provider Un available Remington Waldron Unavailable [phone] Morales Diaz Unavailable [phone] Allergies Allergen (clinical drug ingredient) Drug/Non Drug Allergy documented on EMR Reaction Allergy Type Onset Date Status morphine Morphine vomiting Drug Allergy Active Reason For Referral No Information Medications Medication SIG (Take, Route, Fr equency, Duration) Notes Start Date End Date Status Lamisil 250 250 MG 1 tab Oral Daily; Du ration: 90 Not-Taking Naproxen 500 MG 1 tablet as needed O rally every 12 hrs; Duration: 30 days 07/18/2015 Not-Taking Physical Therapy . . . 2-3x/week; Durat ion: 3-4 weeks 06/19/2015 Not-Taking Lamisil 250 250 MG 1 tab Oral Daily; Du ration: 90 06/19/2015 Not-Taking Social History Tobacco use other than smoking: Question Answer Notes Are you an other tobacco user? No Problems Problem Type SNOMED Code ICD Code Onset Dates Problem Status W/U Status Risk Notes Problem Pain in left foot (2250459561115 07) Pain in left foot (M79.672) Active confirmed Problem Acquired hammer toe of right foot (4876239672350 105) Other hammer toe(s) (acquired), right foot (M20.41) Active confirmed Vital Signs Height 5ft 8in in 03/13/2024 Weight 175 lbs 03/13/2024 BMI 26.61 kg/m2 03/13/2024 Encounters Encounter Location Date [facility] [address] [address] 03/13/2024 Remington Waldron Tinea unguium B35.1 ; Pain in right toe(s) M79.674 ; Pain in left toe(s) M79.675 and Other hammer toe(s) (acquired), right foot M20.41 [facility] [address] [address] 03/20/2024 Remington Waldron Assessments Encounter Date Diagnosis [...] X ray : Foot, right 3V 03/13/2024 [id number] TENDON SHEATH/LIGAMENT 1 08/19/2014 Insurance Providers Payer Name Payer Address Payer Phone Subscriber Number Group Number Insured Name Patient Relationship to Insured Coverage Start Date Coverage End Date [facility] All Others [address] [place] [address] [phone] [id number] Poncho Galindo Self - patient is the insured Medical (General) History Medical History History ICD Code Polio Measles Mumps Chicken pox Broken bones Joint implants/screws Arthritis covid-19 Surgical History Surgery Date(Month/Year) leg and foot surgery, 15 ortho surgeries shoulder surgery
== END 2025-02-08 09:32 | disposition home or self-care (01) ==
PROVIDERS: PCP Internal Medicine; Visit Provider Physician Assistant
DX: L03.113 Cellulitis of right upper limb (principal)

== ENCOUNTER → 2025-02-08 09:12 | Outpatient (BNVA) | payer BC, SELFPAY | PROVIDERS: PCP Internal Medicine; Visit Provider Physician Assistant | DX: Z13.89 Encounter for screening for other disorder (principal) ==

== ENCOUNTER 2025-02-20 08:55 | Outpatient (AMB) | payer BC, SELFPAY ==
[2025-02-20 09:07] VITALS: BP 124/66; PULSE 70; TEMP 36.8; O2SAT 97; BMI 24.2
--- NOTE | 2025-02-20 09:07 | AM.OFFWIN_ITS ---
Intake Vital Signs 02/20/25 09:07 Height 5 ft 8 in Weight 159 lb BMI 24.2 BP 124/66 Blood Pressure Location Lt brachial Position Sitting Pulse 70 Pulse Source Pulse Oximeter Temp 98.2 F Temp Source Oral Pulse Oximetry (%) 97 Oxygen Delivery Method Room Air Intake Visit Reasons: EP rash on RT hand Intake Note: presents with unresolved rash on right arm after abx Patient Tobacco Use Status: Never used Tobacco Allergies No Known Allergies (No Known Allergies*) Allergy (Verified 02/20/25 09:10) Do you need a note to return to daycare/school/sports/work: No HPI HPI Comments History of Present Illness Details History - The patient is a 69-year-old male pres enting with follow-up for cellulitis after a bug bite. - Two weeks prior on 02/08, the patient w as treated for cellulitis with antibiotics, which initially covered a larger area. - The patient reports improvement after he finished his antibiotics but is concerned about residual redness and possible recurrence. - The area is not warm to touch, and the patient believes it is healing, although it remains rough and dry. - He denies warmth, discharge, streaking , other rashes, fever, chills, CP, SOB, joint pain, wheezing, abd pain, n/v/d. Physical Exam General: Cooperative, healthy appearing, comfortable, no acute distress and well developed Respiratory: Normal respiratory effort and able to speak in complete sentences. Clear to auscultation bilaterally. No w/r/r noted. Cardiovascular: RRR, no m/r/g noted. Normal S1 and S2 Skin: Slightly erythematous, dry, rough skin noted on the right upper anterior arm. No lesions noted, no induration or fluctuance noted. 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, right lower leg History of vitamin D deficiency Impaired fasting glucose Hypercholesterolemia Overweight (BMI 25.0-29.9) Shortness of breath at rest Epigastric pain Scrotal mass Acute pain in scrotum Bilateral finger arthralgia Osteoarthritis History of trigger finger Hx of orchitis Tinnitus Sequelae of poliomyelitis Surgical History S/P trigger finger release History of surgical removal of meniscus of knee H/O eye surgery History of shoulder surgery History of foot surgery Family History Father Lung cancer Mother Breast cancer Maternal Grandfather History of heart attack Maternal Grandmother History of heart attack Paternal Uncle DVT (deep venous thrombosis) Factor V Leiden mutation Brother No problems noted. Brother No problems noted. Sister No problems noted. Daughter No problems noted. Social History Housing: House Alcohol intake: current Patient Tobacco Use Status: Never used Tobacco e-Cigarette/Vaping Use: Never Used service: No Current occupational status: employed Cognitive needs: No Hearing needs: No Vision needs: No Review of Systems Const All systems reviewed & are unremarkable except as noted in HPI and below Physical Exam Vital Signs: Last Vital Signs Temp 98.2 F 02/20/25 09:07 Pulse 70 02/20/25 09:07 BP 124/66 02/20/25 09:07 Pulse Ox 97 02/20/25 09:07 Oxygen Delivery Method Room Air 02/20/25 09:07 BMI result Body Mass Index 24.2 Assessment & Plan Assessment & Plan (1) Rash: Code(s): R21 - Rash and other nonspecific skin eruption Plan Most likely Cellulitis which has resolved Plan - Continue monitoring the affected area for signs of infection such as increased redness, warmth, or swelling. - Advise the patient to maintain skin hygiene and avoid scratching to prevent further irritation. - Reassure the patient that this is normal healing process - follow up as needed Coding Level of Care Code Est Pt Level 3 (65789) Diagnoses Rash R21
--- OUTSIDE RECORDS SUMMARY | 2025-02-20 09:08 | XMS_ITS | Patient Health Record ---
Author Organization [facility] Address [address] [place] [address] Care Team Providers Care Sales And Service Technician Name Role Phone José Luis DONIS, Pavithra Dewey Primary Care Provider Un available Remington Waldron Unavailable [phone] Morales Diaz Unavailable [phone] Allergies Allergen (clinical drug ingredient) Drug/Non Drug [...] Risk Notes Problem Pain in left foot (M79.672) Active confirmed Problem Acquired hammer toe of right foot (7008807264302 105) Other hammer toe(s) (acquired), right foot (M20.41) Active confirmed Vital Signs Height 5ft 8in in 03/13/2024 Weight 175 lbs 03/13/2024 BMI 26.61 kg/m2 03/13/2024 Encounters Encounter Location Date Provider Diagnosis [facility] [address] [address] 03/13/2024 Remington Waldron Tinea unguium B35.1 ; Pain in right toe(s) M79.674 ; Pain in left toe(s) M79.675 and Other hammer toe(s) (acquired), right foot M20.41 [facility] [address] [address] 03/20/2024 Remington Waldron Assessments Encounter Date Diagnosis [...] X ray : Foot, right 3V 03/13/2024 [id number] TENDON SHEATH/LIGAMENT 1 08/19/2014 Insurance Providers Payer Name Payer Address Payer Phone Subscriber Number Group Number Insured Name Patient Relationship to Insured Coverage Start Date Coverage End Date [facility] [address] [place] [address] [id number] Poncho Galindo Self - patient is the insured Medical (General) History Medical History History ICD Code Polio Measles Mumps Chicken pox Broken bones Joint implants/screws Arthritis covid-19 Surgical History Surgery Date(Month/Year) leg and foot surgery, 15 ortho surgeries shoulder surgery
== END 2025-02-20 09:44 | disposition home or self-care (01) ==
PROVIDERS: PCP Internal Medicine; Visit Provider Physician Assistant Medical
DX: R21 Rash and other nonspecific skin eruption (principal)

== ENCOUNTER 2025-02-25 14:14 | Outpatient (AMB) | payer BC, SELFPAY ==
[2025-02-25 14:16] VITALS: BP 140/76; PULSE 72; TEMP 36.7; O2SAT 95; BMI 24.3
--- NOTE | 2025-02-25 14:16 | MHC.OFFWIV ---
Intake Vital Signs 02/25/25 14:16 Height 5 ft 8 in Weight 160 lb BMI 24.3 BP 140/76 H Blood Pressure Location Rt brachial Position Sitting Pulse 72 Pulse Source Pulse Oximeter Temp 98.1 F Temp Source Oral Pulse Oximetry (%) 95 Oxygen Delivery Method Room Air Intake Visit Reasons: EP rash on RT arm Intake Note: Patient presents with a rash on right arm times 3 weeks Patient Tobacco Use Status: Never used Tobacco Allergies No Known Allergies (No Known Allergies*) Allergy (Verified 02/25/25 14:21) Do you need a note to return to daycare/school/sports/work: No HPI HPI Comments History of Present Illness Details 69 y/o Male patient who presents to the walk in clinic with c/o Rash on his right upper Arm. Pt has been seen 3 times for this - first visit he was treated for Cellulitis with Abx. Pt's skin infection was completely resolved after completing Abx. He returns today because he feels the rash still there - pointing to the areas of skin that are Sun Tanned and mildly erythematous. No visible rash - skin very dry and intact. 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, right lower leg History of vitamin D deficiency Impaired fasting glucose Hypercholesterolemia Overweight (BMI 25.0-29.9) Shortness of breath at rest Epigastric pain Scrotal mass Acute pain in scrotum Bilateral finger arthralgia Osteoarthritis History of trigger finger Hx of orchitis Tinnitus Sequelae of poliomyelitis Surgical History S/P trigger finger release History of surgical removal of meniscus of knee H/O eye surgery History of shoulder surgery History of foot surgery Family History Father Lung cancer Mother Breast cancer Maternal Grandfather History of heart attack Maternal Grandmother History of heart attack Paternal Uncle DVT (deep venous thrombosis) Factor V Leiden mutation Brother No problems noted. Brother No problems noted. Sister No problems noted. Daughter No problems noted. Social History Housing: House Alcohol intake: current Patient Tobacco Use Status: Never used Tobacco e-Cigarette/Vaping Use: Never Used service: No Current occupational status: employed Cognitive needs: No Hearing needs: No Vision needs: No Review of Systems Const All systems reviewed & are unremarkable except as noted in HPI and below Physical Exam Vital Signs: Last Vital Signs Temp 98.1 F 02/25/25 14:16 Pulse 72 02/25/25 14:16 BP 140/76 H 02/25/25 14:16 Pulse Ox 95 02/25/25 14:16 Oxygen Delivery Method Room Air 02/25/25 14:16 BMI result Body Mass Index 24.3 Const General: no acute distress Nutritional Appearance: well nourished Orientation/consciousness: patient oriented x3 Skin Other: No rashes, skin dry, Tanned and mildly erythematous. General skin exam: dry skin Lesions: no lesions Rashes: no rashes Trauma: no lacerations or abrasions Wounds: no wounds Neuro General: patient oriented x3, gait normal and moves all extremities Psych Speech and movement: Normal speech and movement present Assessment & Plan Assessment & Plan (1) Discolored skin: Code(s): L81.9 - Disorder of pigmentation, unspecified Plan: No rashes, skin dry, Tanned and mildly erythematous. Maintain Good skin/body hygiene Moisturize skinfrequently and apply Sun screen when outside in the Sun. Coding Level of Care Code Est Pt Level 4 (15101) Diagnoses Discolored skin L81.9 Time Spent (min) 20
--- OUTSIDE RECORDS SUMMARY | 2025-02-25 15:36 | XMS_ITS | Patient Health Record ---
[facility] Organization [facility] Address [address] [place] [address] Care Team Providers Care Park Police Name Role Phone José Luis DONIS, Pavithra Dewey Primary Care Provider Un available Remington Waldron Unavailable [phone] Morales Diaz Unavailable [phone] Allergies Allergen (clinical drug ingredient) Drug/Non Drug [...] Risk Notes Problem Pain in left foot (1114145433472 07) Pain in left foot (M79.672) Active confirmed Problem Acquired hammer toe of right foot (4581490297782 105) Other hammer toe(s) (acquired), right foot (M20.41) Active confirmed Vital Signs Height 5ft 8in in 03/13/2024 Weight 175 lbs 03/13/2024 BMI 26.61 kg/m2 03/13/2024 Encounters Encounter Location Date Provider Diagnosis [facility] [address] [address] 03/13/2024 Remington Waldron Tinea unguium B35.1 ; Pain in right toe(s) M79.674 ; Pain in left toe(s) M79.675 and Other hammer toe(s) (acquired), right foot M20.41 [facility] [address] [address] 03/20/2024 Remington Waldron Assessments Encounter Date Diagnosis [...] X ray : Foot, right 3V 03/13/2024 [id number] TENDON SHEATH/LIGAMENT 1 08/19/2014 Insurance Providers Payer Name Payer Address Payer Phone Subscriber Number Group Number Insured Name Patient Relationship to Insured Coverage Start Date Coverage End Date [facility] All Others [address] [place] [address] [id number] Poncho Galindo Self - patient is the insured Medical (General) History Medical History History ICD Code Polio Measles Mumps Chicken pox Broken bones Joint implants/screws Arthritis covid-19 Surgical History Surgery Date(Month/Year) leg and foot surgery, 15 ortho surgeries shoulder surgery
== END 2025-02-25 14:42 | disposition home or self-care (01) ==
PROVIDERS: PCP Internal Medicine; Visit Provider Nurse Practitioner Family
DX: L81.9 Disorder of pigmentation, unspecified (principal)

== ENCOUNTER 2025-04-24 13:35 | Outpatient (AMB) | payer BC, SELFPAY ==
--- OUTSIDE RECORDS SUMMARY | 2024-09-05 07:30 | XMS_ITS ---
Author Organization [facility] Address [address] [place] [address] Care Team Providers Care Lamps Tester And Inspector Name Role Phone José Luis DONIS, Pavithra Dewey Primary Care Provider Un available Remington Waldron Unavailable [phone] Morales Diaz Unavailable [phone] Encounters Encounter Location Date Provider [facility] [address] [place] [address] 09/05/2024 Morales Diaz Plan Of Treatment No Information Progress Notes * Poncho ESQUIVEL PDOB:[birth year] (69 yo M)Acc No.[id number]:09/05/2024 Progress Note Patient: Poncho GARDINER Provider: Evi Diaz DPM :1955 A ge:69 Y S ex:Male Date:09/05/2024 Address:[address] [place], [place] [id number] Pcp:Raymundo Hernandez Subjective: * Chief Complaints: * [...] 0 09/05/2024 Generated for Printi ng/Faxing/eTransmitting on: 0 04/24/2025 04:38 PM EDT
[2025-04-24 13:39] VITALS: BP 132/70; PULSE 95; TEMP 36.9; O2SAT 97
--- NOTE | 2025-04-24 13:39 | AM.OFFWIN_ITS ---
Intake Vital Signs 04/24/25 13:39 Height 5 ft 8 in BP 132/70 Blood Pressure Location Lt brachial Position Sitting Pulse 95 Pulse Source Pulse Oximeter Temp 98.5 F Temp Source Oral Pulse Oximetry (%) 97 Oxygen Delivery Method Room Air Intake Visit Reasons: EP Ear infection? Intake Note: pt presents with right ear pain, mild right sided throat pain and right buccal cheek for a few days Patient Tobacco Use Status: Never used Tobacco Allergies No Known Allergies (No Known Allergies*) Allergy (Verified 04/24/25 13:42) Do you need a note to return to daycare/school/sports/work: No HPI HPI Comments History of Present Illness Details History - The patient is a 69-year-old male pres enting with right ear discomfort and pos sible infection. - Reports fluid sensation in the right e ar and cheekbone soreness on the right. - He has had ear issues in the past. - He does clean his ears with ear - Denies significant sinus pain or conge stion, occasional throat irritation and cough noted. - Occasional dizziness reported, not sev ere. - He denies fever, chills, PIÑA, CP, SOB, abd pain, n/v/d, hearing loss, or discharge. Physical Exam General: Cooperative, healthy appearing, comfortable, no acute distress and well developed Head: Normal to inspection Ears: External ears normal bilaterally. No tragus or mastoid tenderness noted. Erythema noted in the right ear canal. TM is clear, not bulging. No loss of bony landmarks. Face and sinus: Normal facial exam. No TTP of the sinuses. Neck: Normal visual inspection. Full ROM. No lymphadenopathy noted. Respiratory: Normal respiratory effort and able to speak in complete sentences. Clear to auscultation bilaterally. No w/r/r noted. Cardiac: RRR, no m/r/g noted. Normal S1 and S2 noted. Skin: No rashes or lesions noted Neuro: Patient oriented x3 Patient was informed and verbally consented to the use of an ambient scribe for clinic note documentation during this visit. 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, right lower leg History of vitamin D deficiency Impaired fasting glucose Hypercholesterolemia Overweight (BMI 25.0-29.9) Shortness of breath at rest Epigastric pain Scrotal mass Acute pain in scrotum Bilateral finger arthralgia Osteoarthritis History of trigger finger Hx of orchitis Tinnitus Sequelae of poliomyelitis Surgical History S/P trigger finger release History of surgical removal of meniscus of knee H/O eye surgery History of shoulder surgery History of foot surgery Family History Father Lung cancer Mother Breast cancer Maternal Grandfather History of heart attack Maternal Grandmother History of heart attack Paternal Uncle DVT (deep venous thrombosis) Factor V Leiden mutation Brother No problems noted. Brother No problems noted. Sister No problems noted. Daughter No problems noted. Social History Housing: House Alcohol intake: current Patient Tobacco Use Status: Never used Tobacco e-Cigarette/Vaping Use: Never Used service: No Current occupational status: employed Cognitive needs: No Hearing needs: No Vision needs: No Review of Systems Const All systems reviewed & are unremarkable except as noted in HPI and below Physical Exam Vital Signs: Last Vital Signs Temp 98.5 F 04/24/25 13:39 Pulse 95 04/24/25 13:39 BP 132/70 04/24/25 13:39 Pulse Ox 97 04/24/25 13:39 Oxygen Delivery Method Room Air 04/24/25 13:39 Assessment & Plan Assessment & Plan (1) Right ear pain: Code(s): H92.01 - Otalgia, right ear Plan Most likely OE vs OM vs cerumen impaction plan - Prescribed ear drops - Advised to avoid further water exposure to the ears. - Avoid q-tips in the ears - should have his PCP refer him to ENT - follow up with PCP Medications: New hydrocortisone-acetic acid 1-2 % 4 drps otic (ear) right QID 10 mL 0RF Coding Level of Care Code Est Pt Level 3 (50754) Diagnoses Right ear pain H92.01
--- OUTSIDE RECORDS SUMMARY | 2025-04-24 16:38 | XMS_ITS | Clinical Summary ---
Author Organization [facility] Address [address] [address] Phone Care Team Providers Care Construction Superintendent Name Role Phone Pavithra Ordonez MD Primary Care Provider Allergies No known active allergies Medications ibuprofen (ADVIL,MOTRIN) 200 MG tablet Take 200 mg by mouth every 6 (six) hours as needed. Active glucosamine-cho ndroitin 500-400 mg Cap Take 1 capsule by mouth daily. Active Active Problems Problem Noted Date Diagnosed Date Primary osteoarthritis of both knees 01/14/2021 Assessment & Plan (01/19/2021 10:09 AM EDT): Continue Ibuprofen 400 mg with food as needed for OA knee pain relief. Patient has Tylenol Arthritis he can take as well if needed. He is using Glucosamine and Chondroitin for knees for about a month, and states it is helping with knee pain relief. Strain of musc/tend the rotator cuff of left radha ulder, init 01/14/2021 Finger pain, right 11/25/2020 Assessment & Plan (01/19/2021 10:09 AM EDT): Continue Ibuprofen 400 mg with food as needed for OA knee pain relief. Patient has Tylenol Arthritis he can take as well if needed. He is using Glucosamine and Chondroitin for knees for about a month, and states it is helping with knee pain relief. Assessment & Plan (12/03/2020 1:58 PM EDT): Continue Ibuprofen 200 mg with food every 6 hours as needed. Patient can also use Tylenol Arthritis for additional finger pain relief. Will get autoimmune labs for origin of finger pain. X-ray right hand. Acute pain of left knee 11/25/2020 Assessment & Plan (12/03/2020 1:57 PM EDT): Continue Ibuprofen 200 mg with food every 6 hours as needed. Patient can also use Tylenol Arthritis for additional knee pain relief. Will get autoimmune labs for origin of knee pain. X-ray left knee. Immunizations Immunization Administration Dates Next Due COVID-19 (Pre-06/06) [employer] Vaccine, mRNA, PF ,11/05/2020 Family History Medical History Relation Comments Lung cancer Father Heart attack Maternal Grandfather Heart attack Maternal Grandmother Breast cancer Mother Deep vein thrombosis Paternal Uncle Factor V Leiden deficiency Paternal Uncle Relation Status Comments Father Maternal Grandfather Maternal Grandmother Mother Paternal Uncle Social History Tobacco Use Types Packs/Day Years Used Date Smoking Tobacco: Never Smokeless Tobacco: Never Education Answer Date Recorded Are you interested in more education? Not on wilda e 12/10/2022 Are you concerned about learning? Not on file 12/10/2022 No 12/10/2022 No 12/10/2022 Digital Access Answer Date Recorded No 01/08/2023 No 01/08/2023 Reliable internet access at home? Not on file 01/08/2023 Device with a working camera? Not on file Sex and Gender Information Value Date Recorded Sex Assigned at Not on file Legal Sex Male 5:46 PM EDT Gender Identity Not on file Sexual Orientation Not on file Last Filed Vital Signs Vital Sign Reading Time Taken Comments Blood Pressure 124/72 01/14/2021 4:35 PM EDT Pulse - - Temperature - - Respiratory Rate - - Oxygen Saturation - - Inhaled Oxygen Concentration - - Weight 81.5 kg (179 lb 9.6 oz) 01/14/2021 4:35 P M EDT Height 172.7 cm (5' 8 ) 01/14/2021 4:35 PM EDT Body Mass Index 27.31 01/14/2021 4:35 PM EDT Plan of Treatment Health Maintenance Due Date Last Done Comments LIPID PANEL 1957 DEPRESSION SCREENING 1969 HEPATITIS C SCREENING 1975 COLOGUARD 2002 COLONOSCOPY 2002 COLORECTAL CANCER SCREENING 2002 FIT TEST 2002 FOBT 2002 SIGMOIDOSCOPY 2002 VIRTUAL COLONOSCOPY 2002 PNEUMOCOCCAL VACCINES (50+ years) (1 of 1 - PCV) 2007 ZOSTER VACCINES (3 of 3) 07/25/2019 019, 05/06/2013 INFLUENZA VACCINE (#1) 2025 05/20/2015 COVID-19 VACCINE (3 - 2024-2 6 season) 2025 11/29/2020, 11/05/2020 Adult Td,Tdap Booster 02/02/2027 02/02/2017 RSV VACCINE (1 - 1-dose 75+ series) 2032 SMOKING STATUS SCREENING (On ce After 26 Yrs) Completed 01/14/2021 HEPATITIS A VACCINES Aged Out No long er eligible based on patient's age to complete this topic HIB VACCINES Aged Out No longer eligi ble based on patient's age to complete this topic MENINGOCOCCAL VACCINES (ACWY) Aged Out No longer eligible based on patient's age to complete this topic MENINGOCOCCAL VACCINES (B) Aged Out N o longer eligible based on patient's age to complete this topic Medical Devices Not on file [place] [address] [place] [address] [facility] OF [facility] PPO BLUE CROSS OUT OF STATE PPO BLUE CROSS OUT OF STATE PPO BLUE CROSS OUT OF STATE PPO BLUE CROSS OUT OF STATE PPO BLUE CROSS OUT OF STATE PPO BLUE CROSS OUT OF STATE PPO BLUE CROSS OUT OF STATE PPO [facility] PPO Care Teams Construction Superintendent Relationship Specialty Start Date End Date Pavithra Ordonez MD [address] [place] [address] PCP - General Internal Medicine 11/05/20 Additional Source Comments The information contained in this document represents components of the legal health record. It is not the complete legal health record.[facility]
--- OUTSIDE RECORDS SUMMARY | 2025-04-24 16:38 | XMS_ITS | Patient Health Record ---
Author Organization [facility] Address [address] [place] [address] Care Team Providers Care Track Laying Machine Operator Name Role Phone José Luis DONIS, Pavithra Dewey Primary Care Provider Un available Remington Waldron Unavailable [phone] Morales Diaz Unavailable [phone] Allergies Allergen (clinical drug ingredient) Drug/Non Drug [...] Risk Notes Problem Pain in left foot ([id number] 07) Pain in left foot (M79.672) Active confirmed Problem Acquired hammer toe of right foot (5463529349927 105) Other hammer toe(s) (acquired), right foot (M20.41) Active confirmed Plan Of Treatment Pending Test Test Name Order Date X ray : Foot, left 2V 05/21/2015 *Liver Function Test (LFT) 06/19/2015 X ray : Foot, right 3V 03/13/2024 [id number] TENDON SHEATH/LIGAMENT 1 08/19/2014 Insurance Providers Payer Name Payer Address Payer Phone Subscriber Number Group Number Insured Name Patient Relationship to Insured Coverage Start Date Coverage End Date [facility] All Others [address] [place] [address] [phone] [id number] Poncho Galindo Self - patient is the insured Medical (General) History Medical History History ICD Code Polio Measles Mumps Chicken pox Broken bones Joint implants/screws Arthritis covid-19 Surgical History Surgery Date(Month/Year) leg and foot surgery, 15 ortho surgeries shoulder surgery
== END 2025-04-24 14:14 | disposition home or self-care (01) ==
PROVIDERS: PCP Internal Medicine; Visit Provider Physician Assistant Medical
DX: H92.01 Otalgia, right ear (principal)

== ENCOUNTER 2025-05-16 14:44 | Outpatient (AMB) | payer BC, SELFPAY ==
--- OUTSIDE RECORDS SUMMARY | 2024-09-05 07:30 | XMS_ITS ---
Author Organization [facility] Address [address] [place] [address] Care Team Providers Care Advertising Strategist Name Role Phone José Luis DONIS, Pavithra Dewey Primary Care Provider Un available Remington Waldron Unavailable [phone] Morales Diaz Unavailable [phone] Encounters Encounter Location Date Provider [facility] [address] [place] [address] 09/05/2024 Morales Diaz Plan Of Treatment No Information Progress Notes * Poncho ESQUIVEL PDOB:[birth year] (69 yo M)Acc No.[id number]:09/05/2024 Progress Note Patient: Poncho GARDINER Provider: Evi Diaz DPM :1955 A ge:69 Y S ex:Male Date:09/05/2024 Address:[address] [place], [place] [id number] Pcp:Raymundo Hernandez Subjective: * Chief Complaints: * * Medical History: Objective: * Vitals: Assessment: Plan: * Treatment: * Images: * The named appointment provid er may or may not be the originator of this progress note, and it is not deemed complete until electronically signed by the appointment provider. Sign off status: Pending * Provider: Evi Diaz DPM Date: 0 09/05/2024 Generated for Printi ng/Faxing/eTransmitting on: 1 04:15 PM EDT
[2025-05-16 15:23] VITALS: BP 138/74; PULSE 73; RESP 16; TEMP 36.8; O2SAT 98; BMI 23.3
--- NOTE | 2025-05-16 15:23 | MHC.PC.OV ---
Vital Signs 05/16/25 15:23 Height 5 ft 8 in Weight 153 lb BMI 23.3 BP 138/74 Blood Pressure Location Rt brachial Position Sitting Respiration 16 Pulse 73 Pulse Source Pulse Oximeter Temp 98.3 F Temp Source Oral Pulse Oximetry (%) 98 Oxygen Delivery Method Room Air Intake Visit Reasons: follow up - ear (per Dr Steve) Intake Note: Pt is here today for a f/u walkin Rt ear pain : pt request a referral for a ENT Plastics Worker Required: No Allergies No Known Allergies (No Known Allergies*) Allergy (Verified 05/22/25 23:37) Medication List - Last Reconciled 05/22/25 by Pavithra Ordonez MD meclizine 12.5 mg PO BID PRN Tobacco use date assessed: 05/16/25 Fall risk assessment: No Falls in past year Last assessed Fall Risk: 05/16/25 Dental Screening Dental Screen Date: 05/16/25 Did you have a dental visit in the last 12 months?: Yes Did you have a dental problem in the last 6 months where you did not have access to dental care?: No Was dental information given to patient?: Patient has dentist HPI follow up - ear (per Dr Steve) HPI Details The patient is a 69-year-old male presenting with dizziness and tinnitus. The dizziness began intermittently following an episode of otitis media in July 2024, which was treated with antibiotics. The patient reports occasional dizziness, particularly when changing positions, but denies recent episodes of dizziness while standing or walking. The tinnitus is bilateral and persistent, with the patient noting a history of exposure to loud music, which may have contributed to hearing loss. The patient has made lifestyle changes, including reducing sugar intake, which has resulted in a weight loss of 25 pounds over several months. Previous lab results indicated a slightly elevated blood sugar and cholesterol, prompting dietary adjustments. 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, right lower leg History of vitamin D deficiency Impaired fasting glucose Hypercholesterolemia Overweight (BMI 25.0-29.9) Bilateral finger arthralgia Osteoarthritis History of trigger finger Hx of orchitis Tinnitus Sequelae of poliomyelitis Surgical History S/P trigger finger release History of surgical removal of meniscus of knee H/O eye surgery History of shoulder surgery History of foot surgery Family History Father Lung cancer Mother Breast cancer Maternal Grandfather History of heart attack Maternal Grandmother History of heart attack Paternal Uncle DVT (deep venous thrombosis) Factor V Leiden mutation Brother No problems noted. Brother No problems noted. Sister No problems noted. Daughter No problems noted. Social History Housing: House Alcohol intake: current Patient Tobacco Use Status: Never used Tobacco e-Cigarette/Vaping Use: Never Used service: No Current occupational status: employed Cognitive needs: No Hearing needs: No Vision needs: No Questionnaire PHQ-9 Over the last 2 weeks, how often have you been bothered by any of the following problems? 1. Little interest or pleasure in doing things: not at all 2. Feeling down, depressed, or hopeless: not at all 3. Trouble falling or staying asleep, or sleeping too much: not at all 4. Feeling tired or having little energy: not at all 5. Poor appetite or overeating: not at all 6. Feeling bad about yourself - or that you are a failure or have let yourself or your family down: not at all 7. Trouble concentrating on things, such as reading the newspaper or watching television: not at all 8. Moving or speaking so slowly that other people could have noticed. Or the opposite - being so fidgety or restless that you have been moving around a lot more than usual: not at all 9. Thoughts that you would be better off or of hurting yourself in some way: not at all Total score: 0 Source: Developed by Drs. Shantanu Landaverde, Lexis Pablo, Sandip Almodovar and colleagues, with an educational sweta from [employer]. Thrive Questionnaire Date Thrive assessed: 09/13/24 I am a: Patient What is your living situation today?: I have a steady place to live Within the past 12 months, did the food you bought not last and you didn't have the money to get more?: Never true Within the past 12 months, did you worry whether your food would run out before you got money to buy more?: Never true Do you have trouble paying for medicines?: No Do you have trouble getting transportation to medical appointments?: No Do you have trouble paying your heating and electricity bill?: No Do you have trouble taking care of your child, family member or friend?: No Do you have trouble with day-to-day activities such as bathing, preparing meals, shopping, managing finances, etc.?: No Are you currently unemployed and looking for a job?: No Are you interested in more education?: No THRIVE Score: 0 AUDIT C Alcohol Use Questionnaire (AUDIT-C) 1. How often do you have a drink containing alcohol?: 2-3 times a week 2. How many drinks containing alcohol do you have on a typical day when you are drinking?: 1 or 2 3. How often do you have six or more drinks on one occasion?: Never Total Score: 3 SUMIT-7 AMB Questionnaire SUMIT-7 Date SUMIT - 7 assessed: 09/13/24 Feeling nervous, anxious, or on edge: 0 = Not at all Not being able to stop or control worryin = Not at all Worrying too much about different things: 0 = Not at all Trouble relaxin = Not at all Being so restless that it is hard to sit still: 0 = Not at all Becoming easily annoyed or irritable: 0 = Not at all Feeling afraid as if something awful might happen: 0 = Not at all Total SUMIT-7 score (0-4 normal; 5-9 mild; 10-14 moderate; 15-21 severe): 0 Source: Developed by Drs. Shantanu Landaverde, Lexis Pablo, Sandip Almodovar and colleagues, with an educational sweta from [employer]. Review of Systems Const All systems reviewed & are unremarkable except as noted in HPI and below Physical exam (Primary Care) Vital Signs: Last Vital Signs Temp 98.3 F 05/16/25 15:23 Pulse 73 05/16/25 15:23 Resp 16 05/16/25 15:23 BP 138/74 05/16/25 15:23 Pulse Ox 98 05/16/25 15:23 Oxygen Delivery Method Room Air 05/16/25 15:23 BMI result Body Mass Index 23.3 Tobacco/Smoking Status: Tobacco use Status Tobacco use date assessed 05/16/25 05/16/25 15:31 Patient Tobacco Use Status Never used Tobacco 05/16/25 15:31 e-Cigarette/Vaping Use Never Used 05/16/25 15:31 PHQ-9: PHQ-9 Score PHQ-9: Total score 0 05/16/25 16:00 Thrive Assessment: Date of Thrive Assessment Date Thrive assessed 09/13/24 05/16/25 15:31 Const General: no acute distress and alert Nutritional Appearance: overweight Orientation/consciousness: patient oriented x3 HENMT Face and sinus: Yes sinuses nontender Mouth: Normal oral and palatal mucosa present, oropharynx normal and moist mucous membranes Eyes General: appearance normal, both eyes and all related structures Neck Neck: Yes full ROM, Yes no lymphadenopathy and Yes supple Thyroid: Thyroid normal Chest Chest palpation & inspection: normal inspection of the chest Resp Effort & Inspection: normal respiratory effort and able to speak in complete sentences Auscultation: clear to auscultation bilaterally Cardio Other: S1-S2 present regular rate and rhythm GI Inspection: Yes normal to inspection Palpation (GI): Soft to palpation, no guarding and no masses General: Yes no CVA tenderness Male General Exam: Yes normal external exam, No hernia and No inguinal lymphadenopathy Back/Spine/Pelvis Back: no CVA tenderness Cervical Spine: normal cervical lordosis Thoracic/Lumbar Spine: thoracic and lumbar spine normal to inspection Skin General skin exam: no rashes or lesions noted Neuro Other: Has a limping gait, right leg shorter than left General: patient oriented x3, tone normal, moves all extremities, Normal light touch and pain sensation, no focal motor deficits and CN's II-XI intact bilaterally Extrem Other: Has a limping gait, right leg shorter than left General: Yes full ROM, Yes no joint enlargement, Yes no clubbing, cyanosis or edema and Yes no calf tenderness Psych Appearance: grossly normal and well kempt Mental Status: mental status grossly normal Speech and movement: Normal speech and movement present Affect: normal affect Coding Level of Care Code Est Pt Level 4 (59980) Diagnoses Tinnitus of both ears H93.13 Laterality: bilateral Intermittent lightheadedness R42 Assessment & Plan Assessment & Plan (1) Tinnitus: Code(s): H93.19 - Tinnitus, unspecified ear Category: Medical Qualifiers: Laterality: bilateral Qualified Code(s): H93.13 - Tinnitus, bilateral Plan: The patient experiences bilateral tinnitus, likely related to past loud noise exposure. Hearing loss is suspected. Avoidance of loud noises is recommended, and further audiological evaluation may be considered. Prescription given for meclizine to take only as needed for acute episodes of lightheadedness (2) Intermittent lightheadedness: Code(s): R42 - Dizziness and giddiness Category: Medical Plan: Occasional dizziness is noted, particularly with positional changes. Meclizine is prescribed as needed for symptomatic relief. The patient is advised to avoid activities that may exacerbate dizziness. Plan Patient was informed and verbally consented to the use of an ambient scribe for clinic note documentation during this visit. Orders: Orders Lipid Panel 09/07/25 E66.3 - Overweight, E78.00 - Pure hypercholesterolemia, unspecified, H93.19 - Tinnitus, unspecified ear, R73.01 - Impaired fasting glucose, Z12.5 - Encounter for screening for malignant neoplasm of prostate Alanine Aminotransferase 09/07/25 E66.3 - Overweight, E78.00 - Pure hypercholesterolemia, unspecified, H93.19 - Tinnitus, unspecified ear, R73.01 - Impaired fasting glucose, Z12.5 - Encounter for screening for malignant neoplasm of prostate PSA,Total (Free>4and<10) 09/07/25 E66.3 - Overweight, E78.00 - Pure hypercholesterolemia, unspecified, H93.19 - Tinnitus, unspecified ear, R73.01 - Impaired fasting glucose, Z12.5 - Encounter for screening for malignant neoplasm of prostate Basic Metabolic Panel Fasting 09/07/25 E66.3 - Overweight, E78.00 - Pure hypercholesterolemia, unspecified, H93.19 - Tinnitus, unspecified ear, R73.01 - Impaired fasting glucose, Z12.5 - Encounter for screening for malignant neoplasm of prostate Aspartate Amino Transferase 09/07/25 E66.3 - Overweight, E78.00 - Pure hypercholesterolemia, unspecified, H93.19 - Tinnitus, unspecified ear, R73.01 - Impaired fasting glucose, Z12.5 - Encounter for screening for malignant neoplasm of prostate Vitamin D 25-OH Total 09/07/25 E66.3 - Overweight, E78.00 - Pure hypercholesterolemia, unspecified, H93.19 - Tinnitus, unspecified ear, R73.01 - Impaired fasting glucose, Z12.5 - Encounter for screening for malignant neoplasm of prostate Hemoglobin A1c 09/07/25 E66.3 - Overweight, E78.00 - Pure hypercholesterolemia, unspecified, H93.19 - Tinnitus, unspecified ear, R73.01 - Impaired fasting glucose, Z12.5 - Encounter for screening for malignant neoplasm of prostate Medications: New meclizine 12.5 mg PO BID PRN 20 tabs 0RF dizziness
--- OUTSIDE RECORDS SUMMARY | 2025-05-16 16:16 | XMS_ITS | Patient Health Record ---
Author Organization [facility] Address [address] [place] [address] Care Team Providers Care Apple Peeler Operator Name Role Phone José Luis DONIS, Pavithra Dewey Primary Care Provider Un available Remington Waldron Unavailable [phone] Morales Diaz Unavailable [phone] Allergies Allergen (clinical drug ingredient) Drug/Non Drug [...] Risk Notes Problem Pain in left foot (6797227545841 07) Pain in left foot (M79.672) Active confirmed Problem Acquired hammer toe of right foot (9981035683186 105) Other hammer toe(s) (acquired), right foot (M20.41) Active confirmed Plan Of Treatment Pending Test Test Name Order Date X ray : Foot, left 2V 05/21/2015 *Liver Function Test (LFT) 06/19/2015 X ray : Foot, right 3V 03/13/2024 [id number] TENDON SHEATH/LIGAMENT 1 08/19/2014 Insurance Providers Payer Name Payer Address Payer Phone Subscriber Number Group Number Insured Name Patient Relationship to Insured Coverage Start Date Coverage End Date [facility] [address] [place] [address] [phone] [id number] Poncho Galindo Self - patient is the insured Medical (General) History Medical History History ICD Code Polio Measles Mumps Chicken pox Broken bones Joint implants/screws Arthritis covid-19 Surgical History Surgery Date(Month/Year) leg and foot surgery, 15 ortho surgeries shoulder surgery
--- OUTSIDE RECORDS SUMMARY | 2025-05-16 16:16 | XMS_ITS | Clinical Summary ---
Author Organization [facility] Address [address] [address] Phone Care Team Providers Care Hand Silvering Supervisor Name Role Phone Pavithra Ordonez MD Primary [...] Immunization Administration Dates Next Due COVID-19 (Pre-06/06) gamigo Vaccine, mRNA, PF ,11/05/2020 Family History Medical [...] topic Medical Devices Not on file [place] [address] OUT OF [facility] PPO BLUE CROSS OUT OF STATE PPO BLUE CROSS OUT OF STATE PPO [employer] OUT OF STATE PPO [employer] OUT OF STATE PPO [employer] OUT OF STATE PPO [employer] OUT OF STATE PPO BLUE CROSS OUT OF STATE PPO [facility] PPO Care Teams Hand Silvering Supervisor Relationship Specialty Start Date End Date Pavithra Ordonez MD [address] [place] [address] PCP - General Internal Medicine 11/05/20 Additional Source Comments The information contained in this document represents components of the legal health record. It is not the complete legal health record.[facility]
== END 2025-05-16 16:01 | disposition home or self-care (01) ==
LOC: HO.HMCC 14:44
PROVIDERS: PCP Internal Medicine; Visit Provider Internal Medicine
DX: H93.13 Tinnitus, bilateral (principal); R42 Dizziness and giddiness